=== PATIENT | male | born 1955 | race Caucasian/White ===

== ENCOUNTER 2016-12-12 08:33 | Day surgery (SDC) | payer MEDICARE, OTHER ==
[~2016-12-12] VITALS: Ht 180.3 cm; Wt 116.6 kg
[~2016-12-12 08:33] MED LIST: ACET1TAB33 PO; ALPR0.254 PO; AMOX1TAB61 PO; ASPI-482 PO; BUPIVAC MPF-EPI 0.5%-1:200000 30 ML VIAL. ONE; CALC-326 PO; CARV20CP PO; CEFAZOLIN 2GM PREMIX 50 ML IV PRN; CIPR500T6 PO; CRESTOR10 MG PO; CYAN500T PO; DULO60CA44 PO; EMPA25TA PO; ESOM40CA25 PO; FENTANYL PF 100 MCG/2 ML VIAL. IV PRN; FISH1CAP PO; FURO20TA3 PO; GABA-585 PO; GLIP10TA20 PO; HEPARIN SODIUM 5,000 UNIT in IV NORMAL SALINE 500ML BAG 500 ML IRR ONE; HEPARIN for IV BOLUS 10,000 UNIT/10 ML VIAL. ONE; HYDR-2678 PO; HYDROMORPHONE 2 MG/ML VIAL. IV PRN; INSU100C4 SQ; INSU100V8 SQ; IV RINGERS,LACTATED 1000ML 1,000 ML IV SCH; LACT1CAP6 PO; LIDOCAINE 1% 1 ML SYRINGE. ID PRN; MAGN71.5 PO; MORPHINE SULFATE 2 MG/ML DISP.SYRIN. IV PRN; MULT-658 PO; NIAC1000 PO; NITR0.4T SL; ONDA4TAB10 PO; ONDANSETRON PF 4 MG/2 ML VIAL. IV PRN; Oxycodone Hcl/Acetaminophen PO; PARO10TA3 PO; POLY17PO5 PO; PROCHLORPERAZINE 10 MG/2 ML VIAL. IV PRN; RANI150T2 PO; SITA1TAB11 PO; TELM20TA PO; TRAZ50TA15 PO; TRIA80OI TP; VITA400C36 PO; ZOLP5TAB5 PO; [UNRECOGNIZED DRUG - OTHER] PO
[2016-12-12] MEDS ORDERED: PROPOFOL 20 ML IV ONE (09:57)
[2016-12-12] MEDS ORDERED: LIDOCAINE 2% 100 MG/5 ML SYRINGE. ONE (09:58)
[2016-12-12] MEDS ORDERED: FENTANYL PF 100 MCG/2 ML VIAL. ONE (10:12)
[2016-12-12] MEDS ORDERED: PHENYLEPHRINE in 0.9% NACL PF 1 MG/10 ML DISP.SYRIN. IV ONE (10:50)
[2016-12-12] MEDS ORDERED: DEXAMETHASONE SOD PHOS 20 MG/5 ML VIAL. ONE (10:59)
[2016-12-12] MEDS ORDERED: ONDANSETRON PF 4 MG/2 ML VIAL. ONE (10:59)
[2016-12-12] MEDS ORDERED: SEVOFLURANE 61 TO 120 MINUTES. IH ONE (11:00)
[2016-12-12] MEDS ORDERED: HYDR-971 PO (11:41)
[2016-12-12] MEDS ORDERED: HYDROCODONE/APAP 5/325MG TABLET. PO PRN (11:45)
--- NOTE | 2016-12-12 11:52 | RAD ---
PROCEDURE AP chest radiograph. HISTORY Postoperative Port-A-Cath insertion. COMPARISON None available. FINDINGS Cardiac silhouette appears within normal limits for size. Aortic atherosclerosis is seen. There is a right chest port and catheter by internal jugular approach. The tip of the catheter is thought to project at the mid right atrium, 3 centimeters below the atriocaval junction. Linear density is seen involving the mid left lung zone, favored to be atelectasis or scarring. No pneumothorax or pleural effusion is seen. No failure is evident. IMPRESSION Right chest port and catheter are seen. The tip of the catheter is thought to project at the mid right atrium. Electronically signed by: Thai Galindo MD (Dec 12, 2016 11:50:22)
[2016-12-12] MEDS ORDERED: HYDROCODONE/APAP 5/325MG TABLET. ONE (12:02)
[2016-12-12 12:38] VITALS: BP 138/70
--- NOTE | 2016-12-12 12:44 | RAD ---
Portable chest, 12/12/2016, 12:30 PM: History: Check Port-A-Cath placement Comparison is made to the study of earlier the same day. The right Port-A-Cath tip lies in the inferior aspect of the superior vena cava near its junction with the right atrium. The heart size and pulmonary vascularity are normal. There is calcific plaquing of the aorta. There is an unchanged linear opacity in the left midlung compatible with scarring or atelectasis. No pulmonary consolidation is seen. There is scarring over the pulmonary apices. There is no evidence of pleural fluid or pneumothorax. IMPRESSION: 1. The right Port-A-Cath is in good position as described above. 2. Minimal linear scarring or atelectasis in the left lung.
--- NOTE | 2016-12-12 14:55 | OP ---
DATE OF SURGERY: 12/12/2016 PREOPERATIVE DIAGNOSIS: Colon cancer metastatic to liver. POSTOPERATIVE DIAGNOSIS: Colon cancer metastatic to liver. PROCEDURE: 1. Placement of right internal jugular Port-A-Cath. 2. Ultrasound-guided venous access. 3. Intraoperative use of fluoroscopy. SURGEON: Denys Luna M.D. ANESTHESIA: General. ESTIMATED BLOOD LOSS: 5 mL. INTRAVENOUS FLUIDS: 800 mL. INDICATIONS: The patient is a 61-year-old male with metastatic colon cancer, he is set to start chemotherapy next week. FINDINGS: Chest x-ray read by sd shows no evidence of hemo or pneumothorax. The catheter is in good position with the tip in the distal SVC. The computer system is down, so Radiology is unable to review the film at this time and provide a report at this time. PROCEDURE IN DETAIL: After informed consent was obtained, the patient was taken to the operating room and placed in supine position. After adequate induction of general anesthesia, he was prepped and draped in usual sterile fashion. He was placed in Trendelenburg and the right internal jugular vein was visualized with the ultrasound. The overlying skin was anesthetized with local anesthetic and then the right internal jugular vein was accessed on the first attempt with the Cook needle. Venous blood aspirated easily through the Cook needle. Syringe was removed and the guidewire was advanced through the Cook needle into the right internal jugular vein through the superior vena cava and into the right side of the heart. Fluoroscopy was then used to confirm placement of the guidewire. The needle was removed and the guidewire was clamped to the drape with a hemostat. Local was injected on the right chest, then tunneled from the right neck to the right chest. Skin incision was made on the right chest and over the guidewire and the neck. Pocket was then created with cautery on the right chest for placement of the port. The catheter was then tunneled from the right neck to the right chest. The catheter was allowed to lie on a sterile blue towel just adjacent to the chest incision, so that the catheter never came in contact with the skin throughout the procedure. A dilator and sheath were passed over the guidewire under direct fluoroscopic vision. The guidewire slid easily through the passes of the dilator and sheath. The dilator and guidewire were removed leaving the sheath in place. The catheter was inserted through the sheath. The sheath was split and removed. The patient was placed flat and then the catheter withdrawn to the distal SVC under fluoroscopy, this was 27 cm, the catheter was cut, attached to the port and then the port catheter locking device was then slid down over the port catheter junction. The port was then aspirated, venous blood aspirated easily into the syringe. It was then flushed with dilute heparinized saline of 10 units of heparin per mL of saline. It flushed easily and there was no extravasation from the port catheter junction. The catheter was then placed within the pocket, again it was aspirated, venous blood aspirated easily. It was then flushed with dilute heparinized saline, it was then locked with a final locking flush of 2 mL of 1000 units of heparin per mL. The catheter was sutured to the chest wall with 2-0 Prolene suture x 2. Skin incision was closed with a 3-0 Vicryl for the dermal and subdermal layer and the skin incision was then closed with 4-0 Monocryl in subcuticular fashion. The incision at the right neck was closed with subcuticular 4-0 Monocryl. Sterile dressings were placed, which consisted of the equivalent of the Dermabond followed by Steri-Strips. He tolerated the procedure well. There were no apparent complications. He was then transferred in stable condition to the recovery room. DENYS LUNA MD DR: IBRAHIMA/malu JOB#: [id number] / [id number] TYRON Gilliam VINAY MD ROWELL, CARSON MD
== END 2016-12-12 13:00 | disposition home or self-care (01) ==
LOC: SURG 08:33
PROVIDERS: ATTEND Surgery
DX: C18.9 Malignant neoplasm of colon, unspecified (principal); C78.7 Secondary malignant neoplasm of liver and intrahepatic bile duct; I25.10 Atherosclerotic heart disease of native coronary artery without angina pectoris; E78.00 Pure hypercholesterolemia, unspecified; I10 Essential (primary) hypertension; Z90.49 Acquired absence of other specified parts of digestive tract; E66.9 Obesity, unspecified; F41.9 Anxiety disorder, unspecified; F32.9 Major depressive disorder, single episode, unspecified
CPT/HCPCS: 36561; 71010; 76937; 77001; 82947; C1769; C1788; J0690; J1100; J2370; J2405; J2704; J3010; J3490; J7040; 36556

== ENCOUNTER → 2017-04-08 | Outpatient (CLI) | payer MEDICARE, OTHER ==
[~2017-04-08] MED LIST changes: -BUPIVAC MPF-EPI 0.5%-1:200000 30 ML VIAL. ONE; -CEFAZOLIN 2GM PREMIX 50 ML IV PRN; -FENTANYL PF 100 MCG/2 ML VIAL. IV PRN; +GADOBUTROL 10 MMOL/10 ML VIAL IV ONE; +GLIP-112 PO; -GLIP10TA20 PO; -HEPARIN SODIUM 5,000 UNIT in IV NORMAL SALINE 500ML BAG 500 ML IRR ONE; -HEPARIN for IV BOLUS 10,000 UNIT/10 ML VIAL. ONE; +HYDR-971 PO; -HYDROMORPHONE 2 MG/ML VIAL. IV PRN; -IV RINGERS,LACTATED 1000ML 1,000 ML IV SCH; -LIDOCAINE 1% 1 ML SYRINGE. ID PRN; -MORPHINE SULFATE 2 MG/ML DISP.SYRIN. IV PRN; -ONDANSETRON PF 4 MG/2 ML VIAL. IV PRN; +POLY17PO29 PO; -POLY17PO5 PO; -PROCHLORPERAZINE 10 MG/2 ML VIAL. IV PRN
--- NOTE | 2017-04-08 12:50 | RAD ---
INDICATION: Confusion and dizziness. Headaches. Liver malignancy. TECHNIQUE: Sagittal T1, axial T1, axial T2, axial FLAIR, diffusion imaging with ADC map, postcontrast axial, and postcontrast coronal sequences are provided. 10 mL of intravenous Gadavist was administered without complication. There is mild motion degradation. No comparison is available. FINDINGS:The ventricles and sulci are within normal limits for age. There is no acute intracranial hemorrhage or extra-axial fluid collection. There is no mass effect or midline shift. There is no restricted diffusion to suggest an acute infarct. Sagittal midline structures are unremarkable. Pituitary and suprasellar region are unremarkable. There is mucosal thickening in the paranasal sinuses on the left. Left maxillary sinus is opacified. There is no pathologic enhancement. IMPRESSION: 1. No evidence of metastatic disease. 2. Brain parenchymal volume loss. 3. Paranasal sinus disease on the left. Electronically signed by: Tone Worrell MD (04/08/2017 12:47 PM) [id number]
== END | disposition home or self-care (01) ==
LOC: MRI 10:30
PROVIDERS: ATTEND Internal Medicine Hematology & Oncology
DX: C18.2 Malignant neoplasm of ascending colon (principal); C22.8 Malignant neoplasm of liver, primary, unspecified as to type; R41.0 Disorientation, unspecified; R42 Dizziness and giddiness; R51 Headache
CPT/HCPCS: 70553; A9585

== ENCOUNTER → 2017-08-28 | Outpatient (CLI) | payer MEDICARE, OTHER ==
[~2017-08-28] MED LIST changes: -GADOBUTROL 10 MMOL/10 ML VIAL IV ONE
--- NOTE | 2017-08-28 11:46 | RAD ---
Complete abdominal ultrasound 08/28/2017 Indication: Left upper quadrant pain. History of colon cancer. Comparison study: CT of the abdomen and pelvis August 23, 2016. Discussion: Ultrasound evaluation of the abdomen was performed. Static images were submitted to PACS. Pancreas is not visualized secondary to overlying gas-filled bowel. The liver is partially visualized. There is borderline hepatomegaly with the liver measuring 18 cm longitudinally. The liver is diffusely hyperechoic suggesting hepatic steatosis. There is an irregular mass in the posterior right liver with both echogenic and hypoechoic components. There is areas of appears to be calcification. Definitive internal blood flow was not seen on color Doppler imaging. Mass measures approximately 4.8 cm in diameter. The common bile duct is nondilated at 4 mm. The right kidney measures approximately 15 cm in length, though measures affected by a large cyst involving the superior pole the right kidney measuring up to 10 cm in diameter. A smaller adjacent cyst is noted measuring 3 cm in diameter. The left kidney measures 14.1 cm in length. There is a cyst in the mid left kidney measuring up to 4.6 cm in diameter. The spleen is enlarged measuring 16.9 cm. Splenomegaly is new since available comparison studies. Impression: 1. Approximately 4.8 cm partially calcified mass in the posterior right liver. Patient reports history of prior liver mass, with prior surgical removal and/or ablation. This represents post therapeutic change, or residual mass cannot determine on the basis of this exam. Recommend comparison with more recent CT or MR imaging, likely obtained following treatment. 2. Borderline hepatomegaly and hepatic steatosis 3. Splenomegaly, new since available comparison studies. Comparison with interval imaging may again be helpful.
== END | disposition home or self-care (01) ==
LOC: US 06:20
PROVIDERS: ATTEND Internal Medicine Hematology & Oncology
DX: K76.0 Fatty (change of) liver, not elsewhere classified (principal); R16.1 Splenomegaly, not elsewhere classified; R16.0 Hepatomegaly, not elsewhere classified; Z85.038 Personal history of other malignant neoplasm of large intestine
CPT/HCPCS: 76700

== ENCOUNTER → 2017-08-30 | Outpatient (CLI) | payer MEDICARE, OTHER ==
[~2017-08-30] MED LIST changes: +IOHEXOL 240 MG/ML 50ML VIAL. PO ONE; +IOHEXOL 300 MG/ML 100ML VIAL. IV ONE
--- NOTE | 2017-08-30 12:52 | [facility]IC ---
CT chest, abdomen and pelvis with contrast 08/30/2017 CLINICAL INDICATION: Ascending colon carcinoma and left upper quadrant abdominal pain. History of hepatic resection and liver ablation. COMPARISON: CT chest, abdomen and pelvis 08/23/2016. TECHNIQUE: Multiple CT images of the chest, abdomen and pelvis were obtained following the intravenous and ministration of 100 mL Omnipaque 300. *One or more of the following individualized dose reduction techniques were utilized for this examination: 1. Automated exposure control. 2. Adjustment of the mA and/or kV according to patient size. 3. Use of iterative reconstruction technique. FINDINGS: CHEST: Heart size is normal without definite pericardial effusion. Coronary artery calcifications are noted. The thoracic aorta is normal in caliber. No axillary, mediastinal or hilar lymphadenopathy. The central airways are patent. No suspicious noncalcified pulmonary nodule. No pleural effusion, pneumothorax or focal airspace consolidation. There are no destructive osseous lesions. There is a right IJ chest port with distal tip terminating in the low SVC. Abdomen and pelvis: Prior partial right hepatectomy. Just anterior to the cut surface of the liver near the dome, there is a 2.5 cm hypodensity series 4/image 22 with adjacent surgical suture material. Additional right lobe hypodensity with peripheral surgical suture material measuring 2.7 cm series 4/image 22. There is a hypodensity in the central right lobe of the liver near the junction with the caudate measuring 1.7 cm series 4/image 21 and increased from August 23, 2016 examination. There is an exophytic capsular hypodensity along the inferior margin of the cut surface of the liver measuring 1.2 cm series 4/image 28. There is moderate splenomegaly measuring 16 cm oblique CC without suspicious focal lesion. Adrenal glands unremarkable. Moderate fatty atrophy of the pancreas. There is stable bilateral renal cysts, largest superior pole of the right kidney measuring 9.4 cm. No hydronephrosis. Tortuous abdominal aorta which is normal in caliber with mild aortoiliac calcified atheromatous disease. Major portal, splenic and visualized. Mesenteric veins are widely patent. There are postsurgical changes of a distal colectomy and right hemicolectomy without evidence of discrete soft tissue mass at the anastomotic sites to suggest local recurrence. No retroperitoneal or mesenteric lymphadenopathy. No abdominal free fluid. No pneumoperitoneum. Note is made of exuberant retroperitoneal lipomatosis, stable. Mildly distended unopacified urinary bladder, prostate, and seminal vesicles are unremarkable. No iliac or inguinal lymphadenopathy. No pelvic free fluid. There is lower anterior omental peripherally calcified fat necrosis. Additional fat necrosis in the periumbilical region. There are no destructive osseous lesions. IMPRESSION: CHEST: No evidence of thoracic metastatic disease. Abdomen and pelvis: 1. Prior right brittani- and distal colectomies, and partial right hepatectomy. 2. Central right hepatic lesion abutting the caudate, measuring 1.7 cm, concerning for hepatic metastasis. 3. Anterior right hepatic hypodensities near the cut surface of the liver may represent postablation cavities, however local recurrence cannot be definitively excluded on single phase contrast. If there is more recent CT or MR imaging then August 23, 2016, correlation is recommended. If not, short-term follow-up is recommended. 4. Small, 1.2 cm exophytic hypodensity at the capsule of the inferior right lobe, indeterminate. Findings may represent nodular scarring from posterior. Change, however metastasis cannot basilar appearance. 5. No abdominal or pelvic lymphadenopathy. 6. Moderate splenomegaly. Electronically signed by: Sudeep Orosco MD (08/30/2017 12:49 PM) [id number]
== END | disposition home or self-care (01) ==
LOC: KCIC CT 10:05
PROVIDERS: ATTEND Internal Medicine Hematology & Oncology
DX: C18.2 Malignant neoplasm of ascending colon (principal); R16.1 Splenomegaly, not elsewhere classified
CPT/HCPCS: 71260; 74177; Q9966; Q9967

== ENCOUNTER → 2018-11-07 | Outpatient (CLI) | payer MEDICARE, OTHER ==
[~2018-11-07] MED LIST changes: +APIX5TAB PO; +ASPI81TA59 PO; -CYAN500T PO; +CYAN500T2 PO; +DIPH1TAB PO; +DULA0.75 SQ; -GLIP-112 PO; +GLIP10TA24 PO; +HYDR-2761 PO; +HYDR-3164 PO; -HYDR-971 PO; +INSU100I13 SQ; +INSU100V31 SQ; -IOHEXOL 240 MG/ML 50ML VIAL. PO ONE; -IOHEXOL 300 MG/ML 100ML VIAL. IV ONE; +ISOS30TA4 PO; +MAGN64TA6 PO; +METF10007 PO; +OMEG-167 PO; +ONDA4TAB11 PO; +PANT20TA2 PO; +PREG200C PO; +PSYL3.4P PO; +TRAZ-118 PO; -TRAZ50TA15 PO
--- NOTE | 2018-11-07 09:17 | RAD ---
Thyroid sonography Clinical indications: Thyroid nodule COMPARISON: Available. FINDINGS: The longitudinal AP and transverse dimensions of the right lobe are 4.8 cm and 1.7 cm and 1.0 cm respectively. The right lobe is homogeneous. Isthmus is homogeneous and measures 2.9 mm in thickness. The longitudinal AP and transverse dimensions of the left lobe are 4.3 cm and 1.3 cm and 1.4 cm respectively. There is a small hypoechoic nodule within the posterior lower pole measuring 6 mm x 5 mm x 8 mm in size. IMPRESSION: 8 mm hypoechoic nodule within the inferior pole of the left lobe. This is ACR TI category 4 lesion. Recommend follow-up thyroid sonogram in 6-12 months. Electronically signed by: Nelson Caban MD (11/07/2018 9:14 AM) [facility]
== END | disposition home or self-care (01) ==
LOC: US 07:56
PROVIDERS: ATTEND Internal Medicine Hematology & Oncology
DX: E04.1 Nontoxic single thyroid nodule (principal)
CPT/HCPCS: 76536

== ENCOUNTER 2019-06-28 16:14 | Inpatient (IN) | payer MEDICARE, OTHER ==
[~2019-06-28] VITALS: Ht 180.3 cm; Wt 117.1 kg
[~2019-06-28 16:14] MED LIST changes: -CYAN500T2 PO; +CYAN500T52 PO; -DULO60CA44 PO; +DULO60CA45 PO; -NITR0.4T SL; +NITR0.4T24 SL
[2019-06-28] MEDS ORDERED: ONDANSETRON PF 4 MG/2 ML VIAL. IV ONE (16:45)
[2019-06-28] MEDS ORDERED: fentaNYL PF VIAL 100 MCG/2 ML VIAL IV ONE (16:45)
[2019-06-28] MEDS ORDERED: IV NORMAL SALINE 1000ML BAG 1,000 ML IV ONE ×2 (16:45→17:45)
[2019-06-28 17:22] LABS: BASO # 0.1 x10^3/uL (0.0-0.2); BASO % 0 % (0-3); EOS # 0.3 x10^3/uL (0.0-0.7); EOS % 2 % (0-3); HEMATOCRIT 26.8 % (39.0-53.0); HEMOGLOBIN 8.9 g/dL (13.0-17.5); LYMPH # 1.6 x10^3/uL (1.0-4.8); LYMPH % 8 % (24-48); MEAN CORPUSCULAR HEMOGLOBIN 31 pg (25-35); MEAN CORPUSCULAR HGB CONC 33 g/dL (31-37); MEAN CORPUSCULAR VOLUME 93 fL (79-100); MONO # 0.6 x10^3/uL (0.0-1.1); MONO % 3 % (0-9); NEUT # 16.8 x10^3/uL (1.8-7.7); NEUT % 87 % (31-73); PLATELET COUNT 37 x10^3/uL (140-400); RED BLOOD COUNT 2.89 x10^6/uL (4.30-5.70); WHITE BLOOD COUNT 19.3 x10^3/uL (4.0-11.0)
[2019-06-28 17:29] LABS: PROTHROMBIN TIME PATIENT 14.9 SEC (11.7-14.0)
--- NOTE | 2019-06-28 17:29 | RAD ---
PORTABLE CHEST 1V 06/28/2019 4:41 PM INDICATION: Weakness COMPARISON: 02/16/2019 TECHNIQUE: Portable frontal view of the chest is provided. FINDINGS: The cardiomediastinal silhouette is similar in appearance. Right chest wall infusion port catheter is in similar position. There may be minimal blunting of the left costophrenic angle suggestive of trace pleural effusion versus pleural thickening. No pulmonary vascular congestion or pneumothorax. IMPRESSION: Minimal blunting of left costophrenic angle, new from the prior examination. This may be positional or secondary to overlapping soft tissues from the left breast. Consideration may be given for trace left pleural effusion or pleural thickening. Electronically signed by: Roxana Benson MD (06/28/2019 5:26 PM) [facility]
[2019-06-28 17:30] LABS: CALCIUM 8.9 mg/dL (8.5-10.1); GFR 74.8; POTASSIUM 3.9 mmol/L (3.5-5.1)
[2019-06-28 17:36] LABS: ALBUMIN 3.4 g/dL (3.4-5.0); ALBUMIN/GLOBULIN RATIO 1.1 (1.0-1.7); TOTAL BILIRUBIN 0.7 mg/dL (0.2-1.0); TOTAL PROTEIN 6.5 g/dL (6.4-8.2)
[2019-06-28 17:38] LABS: % BANDS 9 % (0-9); % EOS 1 % (0-5); % LYMPHS 9 % (24-48); % MONOS 1 % (0-10); % SEGS 80 % (35-66); PLT ESTIMATE DECREASED (ADEQUATE)
[2019-06-28 17:40] LABS: ANISOCYTOSIS MOD; POLYCHROMASIA SLIGHT; TOXIC GRANULATION MOD
--- NOTE | 2019-06-28 17:42 | PHYS DOC ---
Past Medical History Past Medical History: Asthma, CAD, Cancer, COPD, Diabetes-Type II, Hypertension, Other Additional Past Medical Histor: COLON CA-STAGE 4 Past Surgical History: Appendectomy, Cancer Surgery, Colectomy, Other Additional Past Surgical Histo: partial colectomy, cardiac stent Alcohol Use: None Drug Use: None Adult General Chief Complaint Chief Complaint: WEAKNESS/GENERALIZED HPI HPI Patient is a 64 year old male history of chemotherapy for stage IV colon cancer metastases to liver and lung presenting with generalized malaise for the past few days decreased by mouth intake mild abdominal discomfort headache moderate both temples described as throbbing comes and goes slowly worsening has had that headache before with dehydration in the past says last CAT scan of the brain he had was several months ago and it did not show any tumors as far as he knows. He did have a large episode several episodes yesterday of brown loose stool. Has had a lot of trouble urinating really only dribble at a time when he tries to urinate. Only would have 1 ounce of Gatorade at a time. Of note he was at [facility] 2 weeks ago he tells me he had a GI bleed he said he was on Candi Radha and he was thanks hemorrhaging from his rectum he had multiple studies including endoscopy colonoscopy capsule endoscopy in he describes a radionuclide bleeding studies at this ESOPHAGEAL [facility] THEY BANDED HE TELLS ME I'M WAITING FOR THE RECORDS I ASKED FOR THE DISCHARGE SUMMARY FROM LAST COUPLE OF WEEKS. Review of Systems Review of Systems Denies fever or chills [] Eyes: Denies change in visual acuity, redness, or eye pain [] HENT: Denies nasal congestion or sore throat [] Respiratory: Denies cough or shortness of breath [] Cardiovascular: No additional information not addressed in HPI [] Musculoskeletal: Denies back pain or joint pain [] Integument: Denies rash or skin lesions [] All other systems were reviewed and found to be within normal limits, except as documented in this note. Current Medications Current Medications Current Medications Medications (Trade) Dose Ordered Sig/Joao Start Time Stop Time Status Last Admin Dose Admin Fentanyl Citrate (Fentanyl 2ml Vial) 50 mcg 1X ONCE 06/28/19 16:45 06/28/19 16:58 DC 06/28/19 17:21 50 MCG Morphine Sulfate (Morphine Sulfate) 4 mg PRN Q2HR PRN 06/28/19 18:00 10/21/19 17:59 Ondansetron HCl (Zofran) 4 mg PRN Q8HRS PRN 06/28/19 18:00 06/29/19 17:59 Piperacillin Sod/ Tazobactam Sod 3.375 gm/Sodium Chloride 50 ml @ 100 mls/hr 1X ONCE 06/28/19 18:15 06/28/19 18:44 Sodium Chloride 1,000 ml @ 75 mls/hr [id number] 06/28/19 17:57 06/29/19 17:56 Allergies Allergies Allergies Coded Allergies Type Severity Reaction Last Updated Verified lisinopril Allergy Intermediate coughing 12/12/16 Yes ranolazine Allergy Intermediate HYPOTENSION 12/12/16 Yes Physical Exam Physical Exam Constitutional: Well developed, well nourished, no acute distress, non-toxic appearance. [] HENT: Normocephalic, atraumatic, bilateral external ears normal, oropharynx moist, no oral exudates, nose normal. [] Eyes: PERRLA, EOMI, conjunctiva normal, no discharge. [] Neck: Normal range of motion, no tenderness, supple, no stridor. [] Cardiovascular:Heart rate regular rhythm, no murmur [] Lungs & Thorax: Bilateral breath sounds clear to auscultation [] Abdomen: Bowel sounds normal, soft, MILD tenderness, no masses, no pulsatile masses. [] Skin: Pale Back: No tenderness, no CVA tenderness. [] Extremities: No tenderness, no cyanosis, no clubbing, ROM intact, no edema. [] Neurologic: Alert and oriented X 3, normal motor function, normal sensory function, no focal deficits noted. [] Psychologic: Affect normal, judgement normal, mood normal. [] Current Patient Data Vital Signs Vital Signs Date Time Temp Pulse Resp B/P (MAP) Pulse Ox O2 Delivery O2 Flow Rate FiO2 06/28/19 16:35 98.8 92 16 158/67 (97) 98 Room Air 98.8 Lab Values Laboratory Tests Test 06/28/19 17:10 06/28/19 17:15 White Blood Count 19.3 x10^3/uL (4.0-11.0) H Red Blood Count 2.89 x10^6/uL (4.30-5.70) L Hemoglobin 8.9 g/dL (13.0-17.5) L Hematocrit 26.8 % (39.0-53.0) L Mean Corpuscular Volume 93 fL (79-100) Mean Corpuscular Hemoglobin 31 pg (25-35) Mean Corpuscular Hemoglobin Concent 33 g/dL (31-37) Red Cell Distribution Width 20.0 % (11.5-14.5) H Platelet Count 37 x10^3/uL (140-400) L Neutrophils (%) (Auto) 87 % (31-73) H Lymphocytes (%) (Auto) 8 % (24-48) L Monocytes (%) (Auto) 3 % (0-9) Eosinophils (%) (Auto) 2 % (0-3) Basophils (%) (Auto) 0 % (0-3) Neutrophils # (Auto) 16.8 x10^3/uL (1.8-7.7) H Lymphocytes # (Auto) 1.6 x10^3/uL (1.0-4.8) Monocytes # (Auto) 0.6 x10^3/uL (0.0-1.1) Eosinophils # (Auto) 0.3 x10^3/uL (0.0-0.7) Basophils # (Auto) 0.1 x10^3/uL (0.0-0.2) Segmented Neutrophils % 80 % (35-66) H Band Neutrophils % 9 % (0-9) Lymphocytes % 9 % (24-48) L Monocytes % 1 % (0-10) Eosinophils % 1 % (0-5) Toxic Granulation Mod Platelet Estimate Decreased (ADEQUATE) Polychromasia Slight Anisocytosis Mod Prothrombin Time 14.9 SEC (11.7-14.0) H Prothrombin Time INR 1.2 (0.8-1.1) H Sodium Level 141 mmol/L (136-145) Potassium Level 3.9 mmol/L (3.5-5.1) Chloride Level 106 mmol/L (98-107) Carbon Dioxide Level 25 mmol/L (21-32) Anion Gap 10 (6-14) Blood Urea Nitrogen 10 mg/dL (8-26) Creatinine 1.0 mg/dL (0.7-1.3) Estimated GFR (Cockcroft-Gault) 74.8 BUN/Creatinine Ratio 10 (6-20) Glucose Level 200 mg/dL (70-99) H Calcium Level 8.9 mg/dL (8.5-10.1) Total Bilirubin 0.7 mg/dL (0.2-1.0) Aspartate Amino Transferase (AST) 17 U/L (15-37) Alanine Aminotransferase (ALT) 25 U/L (16-63) Alkaline Phosphatase 84 U/L (46-116) Troponin I Quantitative < 0.017 ng/mL (0.000-0.055) Total Protein 6.5 g/dL (6.4-8.2) Albumin 3.4 g/dL (3.4-5.0) Albumin/Globulin Ratio 1.1 (1.0-1.7) Lipase 84 U/L (73-393) Influenza Type A Antigen Negative (NEGATIVE) Influenza Type B Antigen Negative (NEGATIVE) Laboratory Tests 06/28/19 17:10 Laboratory Tests 06/28/19 17:10 EKG EKG []NSR RATE 88 BBB PATTERN NO STEMI. Radiology/Procedures Radiology/Procedures [] Impressions: IMPRESSION: Minimal blunting of left costophrenic angle, new from the prior examination. This may be positional or secondary to overlapping soft tissues from the left breast. Consideration may be given for trace left pleural effusion or pleural thickening. Electronically signed by: Parker Benson MD (06/28/2019 5:26 PM) [facility] DICTATED and SIGNED BY: PARKER BENSON MD DATE: 06/28/19 172 Course & Med Decision Making Course & Med Decision Making Pertinent Labs and Imaging studies reviewed. (See chart for details) []PMHx Asthma, COPD, Diabetes-Type II, Hypertension, CAD s/p PCI/stent to the LAD in 2012 (negative cath 09/2017) and colon CA with metastasis to the liver and lung s/p colectomy and is currently on palliative chemotherapy presenting with generalized fatigue headache nausea decreased by mouth intake after recent chemotherapy. LEUKOCYTOSIS NOTED. CT HEAD, CXR NEGATIVE, A/P CT PENDING U/A PENDING D/W RIFFEL ADMIT FOR HYDRATION, HE CAN CHECK ON RESULTS OF CT A/P. CDIFF STUDY ALSO ORDERED FLU SWAB ENG GAVE ZOSYN IN ER WHILE WAITING FOR CT, LACTIC. Dragon Disclaimer Humberto Disclaimer This electronic medical record was generated, in whole or in part, using a voice recognition dictation system. Departure Departure Impression: Primary Impression: Leukocytosis Additional Impression: Dehydration Disposition: 09 ADMITTED INPATIENT Admitting Physician: DONNA Condition: STABLE Referrals: NIYA PUGH MD (PCP) Problem Qualifiers AJ MAIN MD Jun 28, 2019 17:42
--- NOTE | 2019-06-28 17:47 | RAD ---
PQRS Compliance Statement: One or more of the following individualized dose reduction techniques were utilized for this examination: 1. Automated exposure control 2. Adjustment of the mA and/or kV according to patient size 3. Use of iterative reconstruction technique CT HEAD WITHOUT CONTRAST History: Headache, history of malignancy. Comparison: MR brain with and without contrast, April 08, 2017. Procedure: Axial images are obtained of the head from the skull base through the vertex without IV contrast. Findings: There is mild generalized cerebral atrophy. No mass-effect, midline shift, hemorrhage, extra-axial fluid collection, or obvious acute infarction is identified. Basilar cisterns are patent. Bone windows demonstrate no acute calvarial abnormality. The visualized paranasal sinuses are clear. Mastoid air cells are well aerated. IMPRESSION: 1. No acute intracranial abnormality. 2. Mild generalized cerebral atrophy. 3. If there is high clinical suspicion for metastatic disease consider MRI for more sensitive evaluation. Electronically signed by: Jacky Santos MD (06/28/2019 5:45 PM) [facility]
[2019-06-28 17:50] LABS: INFLUENZA A PATIENT NEGATIVE (NEGATIVE); INFLUENZA B PATIENT NEGATIVE (NEGATIVE)
[2019-06-28] MEDS ORDERED: ONDANSETRON PF 4 MG/2 ML VIAL. IV PRN (18:00)
--- NOTE | 2019-06-28 18:01 | RAD ---
PQRS Compliance Statement: One or more of the following individualized dose reduction techniques were utilized for this examination: 1. Automated exposure control 2. Adjustment of the mA and/or kV according to patient size 3. Use of iterative reconstruction technique CT ABDOMEN PELVIS WO CONTRAST Clinical Indication: History of colon cancer, vomiting, pain. Comparison: CT abdomen and pelvis without contrast February 16, 2019. Technique: Helical CT imaging of the abdomen and pelvis is performed without IV or oral contrast. Findings: Evaluation of solid organs and bowel is limited without oral and IV contrast, decreasing sensitivity for detection of pathology. Lung bases essentially clear. Tip of central line seen in distal SVC. Coronary artery disease. Cardiac size normal. There is no pericardial effusion. Stable findings of partial right hepatectomy. Stable hypertrophy of left hepatic lobe. Cholecystectomy. Moderate splenomegaly is stable. There is mild left subphrenic ascites. There is fatty replacement of the pancreas. Adrenal glands are stable. Induration near the MARISELA is unchanged. The abdominal aorta is normal caliber. There are stable bilateral renal cysts. There is no hydronephrosis. Stomach unremarkable. Right supraumbilical fat density with partial rim calcification and identical deeper structure are stable and likely due to fat necrosis. Inferior omental induration is unchanged. There is no dilated small bowel. Proximal colon resection is redemonstrated. There is no colon wall thickening. The urinary bladder is normal. Prostate and seminal vesicles are stable. Mild perirectal induration is similar. There is no pelvic free fluid. Small fat-containing left inguinal hernia. No acute bone abnormality. IMPRESSION: 1. There is mild perisplenic ascites, new from prior study. There is otherwise no acute abdominal or pelvic abnormality. 2. Stable postsurgical changes of the proximal colon and the right liver. 3. Stable moderate splenomegaly. 4. Periumbilical fat necrosis and omental induration are stable. Electronically signed by: Jacky Santos MD (06/28/2019 5:58 PM) [facility]
[2019-06-28] MEDS ORDERED: PIPERACILLIN/TAZOBACTAM 3.375 GM in IV NORMAL SALINE 50ML 50 ML IV ONE (18:15)
[2019-06-28] MEDS: MORPHINE SULFATE 4 MG/ML VIAL. IV PRN ×2 (18:20→22:35)
[2019-06-28 19:00] VITALS: BP 145/39
[2019-06-28] MEDS: IV NORMAL SALINE 1000ML BAG 1,000 ML IV SCH (22:30)
[2019-06-28 23:03] VITALS: BP 148/56
[2019-06-28] MEDS ORDERED: ONDANSETRON PF 4 MG/2 ML VIAL. IVP PRN (23:45)
[2019-06-28] MEDS ORDERED: MORPHINE SULFATE 4 MG/ML VIAL. IV PRN (23:45)
[2019-06-29] MEDS ORDERED: ONDA8TAB14 PO (00:55)
[2019-06-29] MEDS ORDERED: PROP20TA PO (00:55)
[2019-06-29] MEDS ORDERED: ALPR0.5T6 PO (00:55)
[2019-06-29] MEDS ORDERED: TAMS0.4C97 PO (00:55)
[2019-06-29] MEDS ORDERED: INSU100V8 SQ (00:55)
[2019-06-29] MEDS ORDERED: HYDR-2765 PO (00:55)
[2019-06-29] MEDS ORDERED: TELM20TA7 PO (00:55)
[2019-06-29] MEDS ORDERED: CYCL5TAB PO (00:55)
[2019-06-29] MEDS ORDERED: ONDANSETRON ODT 4 MG TAB.RAPDIS. PO PRN (01:00)
[2019-06-29] MEDS ORDERED: HYDROcodone/APAP 7.5/325MG 1 TAB TABLET PO PRN (01:00)
[2019-06-29] MEDS ORDERED: ALPRAZolam 0.5 MG TABLET PO PRN (01:00)
[2019-06-29] MEDS ORDERED: CYCLOBENZAPRINE 10 MG TABLET. PO PRN (01:00)
[2019-06-29] MEDS ORDERED: DIPH1TAB PO (01:00)
[2019-06-29] MEDS ORDERED: DEXTROSE 50% 25 GM / 50ML DISP.SYRIN. IV PRN (01:15)
[2019-06-29] MEDS ORDERED: IV DEXTROSE 5% 250 ML BAG. IV PRN (01:15)
[2019-06-29] MEDS ORDERED: DIPHENOXYLATE/ATROPINE TABLET. PO PRN (01:15)
[2019-06-29 03:03] VITALS: BP 125/55
[2019-06-29] MEDS: MORPHINE SULFATE 4 MG/ML VIAL. IV PRN ×3 (06:15→15:28)
[2019-06-29] MEDS: PANTOPRAZOLE 40 MG TABLET.DR. PO SCH (06:15)
[2019-06-29] MEDS: IV NORMAL SALINE 1000ML BAG 1,000 ML IV SCH ×3 (06:16→21:30)
[2019-06-29 07:00] VITALS: BP 124/68
--- NOTE | 2019-06-29 07:38 | EKG ---
[facility] [address] [place] [address] Test Date: 2019-06-28 Test Time: 17:50:44 Pat Name: MARIAN VALLEJO Department: Room: Gender: M Web Site Specialist: : [id number] Requested By: AJ MAIN Order Number: [id number] Reading MD: Measurements Intervals [place] Rate: 88 P: -53 AL: 124 QRS: -27 QRSD: 162 T: 20 QT: 392 QTc: 478 Interpretive Statements SINUS RHYTHM LEFTWARD AXIS NON SPECIFIC INTRAVENTRICULAR BLOCK ABNORMAL ECG RI6.01 No previous ECG available for comparison
[2019-06-29 07:58] LABS: BILIRUBIN,URINE NEGATIVE (NEG); CLARITY,URINE CLEAR; COLOR,URINE YELLOW; NITRITE,URINE NEGATIVE (NEG); PH,URINE 5.5; PROTEIN,URINE NEGATIVE (NEG-TRACE)
[2019-06-29 08:07] LABS: BACTERIA,URINE 0 /HPF (0-FEW); RBC,URINE 0 /HPF (0-2); SQUAMOUS EPITHELIAL CELL,UR FEW /LPF; WBC,URINE OCC /HPF (0-4)
[2019-06-29] MEDS ORDERED: IV NORMAL SALINE 1000ML BAG 1,000 ML IV ONE (08:15)
[2019-06-29] MEDS: DULoxetine HCL 30 MG CAPSULE.DR PO SCH (08:32)
[2019-06-29] MEDS: TAMSULOSIN 0.4 MG CAP.ER.24H. PO SCH (08:32)
[2019-06-29] MEDS: ISOSORBIDE MONONITRATE ER 30 MG TAB.ER.24H PO SCH (08:33)
[2019-06-29] MEDS: PROPRANOLOL 10 MG TABLET. PO SCH ×2 (08:33→21:00)
[2019-06-29] MEDS: LOSARTAN POTASSIUM 25 MG TABLET. PO SCH (08:33)
[2019-06-29] MEDS: PREGABALIN 50 MG CAPSULE PO SCH ×3 (08:34→21:20)
[2019-06-29] MEDS: ENOXAPARIN 40 MG/0.4 ML SYRINGE. SQ SCH ×2 (08:35→08:45)
[2019-06-29] MEDS: INSULIN LISPRO 300 UNITS/3 ML VIAL. SQ SCH ×6 (08:43→16:38)
--- NOTE | 2019-06-29 10:34 | PDOC1 ---
History and Physical Date of Admission Date of Admission DATE: 06/29/19 TIME: 10:27 Identification/Chief Complaint Chief Complaint diarrhea x 2 days,w ak, headache Source Source: Caregiver, Chart review, Patient History of Present Illness History of Present Illness HE is a known stage 4 colon cancer known to our heme onc group, diarrhea x 2 days, no fevers, weak, poor pO< so went to ER and found to have leukocytosis in 19 plus and clinical signs of dehydration so admitted henceforth, Diarrhea has abated, CT abd and CXR shows findings expected in colon CA - (he had sx twice but no ostomies anymore), HE feels better after 3 IVF bags, courtesy heme onc consulted , still has to see, he asks when to dc NO stool specimen yet as no more diarrhea Denies sick contacts or recent travels or eating suspicious food, lytes look ok PLatelets 37 -might be chronic for hime Hgb 8 Past Medical History Cardiovascular: CAD, HTN Pulmonary: Asthma, COPD GI: Other Heme/Onc: Cancer Hepatobiliary: Other Psych: No pertinent hx Rheumatologic: No pertinent hx Infectious disease: No pertinent hx Renal/: No pertinent hx Endocrine: Diabetes Past Surgical History Past Surgical History: Appendectomy, Colectomy, Colon Resection Family History Family History: Coronary Artery Disease, Family History Unknown Social History Smoke: No ALCOHOL: none Drugs: None Current Problem List Problem List Problems Medical Problems: (1) Dehydration Status: Acute (2) Leukocytosis Status: Acute Current Medications Current Medications Current Medications Sodium Chloride 1,000 ml @ 1,000 mls/hr 1X ONCE IV Last administered on 06/28/19at 17:18; Start 06/28/19 at 16:45; Stop 06/28/19 at 17:44; Status DC Ondansetron HCl (Zofran) 4 mg 1X ONCE IV Last administered on 06/28/19at 17:20; Start 06/28/19 at 16:45; Stop 06/28/19 at 16:58; Status DC Fentanyl Citrate (Fentanyl 2ml Vial) 50 mcg 1X ONCE IV Last administered on 06/28/19at 17:21; Start 06/28/19 at 16:45; Stop 06/28/19 at 16:58; Status DC Sodium Chloride 1,000 ml @ 1,000 mls/hr 1X ONCE IV ; Start 06/28/19 at 17:45; Stop 06/28/19 at 18:44; Status DC Ondansetron HCl (Zofran) 4 mg PRN Q8HRS PRN IV NAUSEA/VOMITING; Start 06/28/19 at 18:00; Stop 06/29/19 at 17:59 Morphine Sulfate (Morphine Sulfate) 4 mg PRN Q2HR PRN IV PAIN Last administered on 06/29/19at 08:35; Start 06/28/19 at 18:00; Stop 06/29/19 at 17:59 Sodium Chloride 1,000 ml @ 75 mls/hr [id number] IV Last administered on 06/29/19at 06:16; Start 06/28/19 at 17:57; Stop 06/29/19 at 17:56 Piperacillin Sod/ Tazobactam Sod 3.375 gm/Sodium Chloride 50 ml @ 100 mls/hr 1X ONCE IV Last administered on 06/28/19at 18:20; Start 06/28/19 at 18:15; Stop 06/28/19 at 18:44; Status DC Morphine Sulfate (Morphine Sulfate) 4 mg PRN Q2HR PRN IV PAIN; Start 06/28/19 at 23:45 Sodium Chloride 1,000 ml @ 75 mls/hr 1X ONCE IV Last administered on 06/29/19at 08:46; Start 06/29/19 at 08:15; Stop 06/29/19 at 21:34 Enoxaparin Sodium (Lovenox 40mg Syringe) 40 mg Q24H SQ ; Start 06/29/19 at 09:00; Stop 06/29/19 at 09:09; Status DC Ondansetron HCl (Zofran) 4 mg PRN Q6HRS PRN IVP NAUSEA/VOMITING; Start 06/28/19 at 23:45 Alprazolam (Xanax) 0.5 mg PRN QID PRN PO ANXIETY / AGITATION; Start 06/29/19 at 01:00 Acetaminophen/ Hydrocodone Bitart (Lortab 7.5/325) 1 tab PRN QID PRN PO PAIN; Start 06/29/19 at 01:00 Insulin Glargine (Lantus Syringe) 70 unit HS SQ ; Start 06/29/19 at 21:00 Isosorbide Mononitrate (Imdur) 30 mg DAILY PO Last administered on 06/29/19 08:33; Start 06/29/19 at 09:00 Tamsulosin HCl (Flomax) 0.4 mg DAILY PO Last administered on 06/29/19 08:32; Start 06/29/19 at 09:00 Cyclobenzaprine HCl (Flexeril) 10 mg PRN TID PRN PO muscle spasms; Start 06/29/19 at 01:00 Duloxetine HCl (Cymbalta) 60 mg DAILY PO Last administered on 06/29/19 08:32; Start 06/29/19 at 09:00 Insulin Human Lispro (HumaLOG) 22 units TIDAC SQ Last administered on 06/29/19 t 08:43; Start 06/29/19 at 07:30 Ondansetron HCl (Zofran Odt) 8 mg PRN QID PRN PO NAUSEA/VOMITING; Start 06/29/19 at 01:00 Pantoprazole Sodium (Protonix) 40 mg DAILYAC PO Last administered on 06/29/19 06:15; Start 06/29/19 at 07:30 Pregabalin (Lyrica) 200 mg TID PO Last administered on 06/29/19 08:34; Start 06/29/19 at 09:00 Propranolol HCl (Inderal) 20 mg BID PO Last administered on 06/29/19 08:33; Start 06/29/19 at 09:00 Atorvastatin Calcium (Lipitor) 40 mg HS PO ; Start 06/29/19 at 21:00 Losartan Potassium (Cozaar) 25 mg DAILY PO Last administered on 06/29/19 08:33; Start 06/29/19 at 09:00 Diphenoxylate HCl/ Atropine (Lomotil) 2 tab PRN Q6HRS PRN PO DIARRHEA; Start 06/29/19 at 01:15 Insulin Glargine (Lantus Syringe) 70 unit QHS SQ ; Start 06/29/19 at 21:00; Status UNV Insulin Human Lispro (HumaLOG) 0-5 UNITS TIDWMEALS SQ Last administered on 06/29/19at 08:44; Start 06/29/19 at 08:00 Dextrose (Dextrose 50%-Water Syringe) 12.5 gm PRN Q15MIN PRN IV SEE COMMENTS; Start 10/21/19 at 01:15 Dextrose 250 ml PRN Q15MIN PRN IV SEE COMMENTS; Start 06/29/19 at 01:15 Active Scripts Active Metamucil Fiber Singles Packet (Psyllium Husk/Aspartame) 3.4 Gm Powd.pack 1 Pkt PO DAILY 30 Days Hydrocodone-Apap 5-325 (Hydrocodone Bit/Acetaminophen) 1 Tab Tablet 1 Tab PO PRN Q4HRS PRN 30 Days Isosorbide Mononitrate Er (Isosorbide Mononitrate) 30 Mg Tab.er.24h 30 Mg PO DAILY 30 Days Reported Lomotil Tablet (Diphenoxylate Hcl/Atropine) 1 Each Tablet 2 Tab PO PRN Q6HRS PRN Cyclobenzaprine Hcl 5 Mg Tablet 1 Tab PO PRN TID PRN Flomax (Tamsulosin Hcl) 0.4 Mg Cap.er.24h 1 Cap PO DAILY Hydrocodone-Apap 7.5-325 (Hydrocodone Bit/Acetaminophen) 1 Tab Tablet 1 Tab PO PRN QID PRN Propranolol Hcl 20 Mg Tablet 1 Tab PO BID Lantus (Insulin Glargine,Hum.rec.anlog) 100 Unit/1 Ml Vial 70 Unit SQ HS Ondansetron Hcl 8 Mg Tablet 8 Mg PO QID PRN Alprazolam 0.5 Mg Tablet 1 Tab PO PRN QID PRN Telmisartan 20 Mg Tablet 20 Mg PO DAILY Mag64 (Magnesium Chloride) 64 Mg Tablet.er 64 Mg PO BID Fish Oil 1,200 mg Softgel ([place]-3S/Dha/Epa/Fish Oil) 1 Each Capsule. 1,200 Mg PO DAILY Children's Aspirin (Aspirin) 81 Mg Tab.chew 81 Mg PO DAILY Novolog (Insulin Aspart) 100 Unit/1 Ml Vial 22 Unit SQ TIDAC Eliquis (Apixaban) 5 Mg Tablet 5 Mg PO BID Protonix (Pantoprazole Sodium) 20 Mg Tablet. 40 Mg PO DAILY Lyrica (Pregabalin) 200 Mg Capsule 200 Mg PO TID 30 Days Trulicity (Dulaglutide) 0.75 Mg/0.5 Ml Pen.injctr 0.75 Mg SQ WEEKLY Metformin Hcl 1,000 Mg Tablet 1,000 Mg PO BIDWMEALS Zolpidem Tartrate 5 Mg Tablet 1 Tab PO QHS Duloxetine Hcl 60 Mg Capsule. 60 Mg PO DAILY Ranitidine Hcl 150 Mg Tablet 150 Mg PO DAILY Jardiance (Empagliflozin) 25 Mg Tablet 25 Mg PO DAILY Furosemide 20 Mg Tablet 20 Mg PO DAILY Coreg Cr (Carvedilol Phosphate) 20 Mg Cpmp.24hr 20 Mg PO DAILY Crestor (Rosuvastatin Calcium) 10 Mg Tablet 10 Mg PO DAILY Oyster Shell Calcium + D Tab (Calcium Carbonate/Vitamin D3) 1 Each Tablet 1 Each PO BID Allergies Allergies: Coded Allergies: lisinopril (Verified Allergy, Intermediate, coughing, 12/12/16) ranolazine (Verified Allergy, Intermediate, HYPOTENSION, 12/12/16) ROS Review of System weak, all else 14 pt neg Physical Exam General: Alert, Oriented X3, Cooperative, No acute distress HEENT: Atraumatic, PERRLA, EOMI Lungs: Clear to auscultation, Normal air movement Heart: S1S2, RRR, no gallops, no murmurs Cardiovascular: S1, S2 Abdomen: Normal bowel sounds, Soft, No tenderness, No masses, Other (abdominla scars, obese, but no pain) Male Genitals Exam: normal genitalia, normal prostate Rectal Exam: not examined PELVIC: Nml ext genitalia Extremities: No clubbing, No cyanosis, No edema, Normal pulses, No tenderness/swelling Skin: No rashes, No breakdown, No significant lesion Neuro: Normal gait, Normal speech, Strength at 5/5 X4 ext, Normal tone, Sensation intact, Cranial nerves 3-12 NL, Reflexes 2+ Psych/Mental Status: Mental status NL Vitals Vitals Vital Signs Date Time Temp Pulse Resp B/P (MAP) Pulse Ox O2 Delivery O2 Flow Rate FiO2 06/29/19 10:18 98 Room Air 06/29/19 08:33 84 124/68 06/29/19 07:00 97.9 18 97.9 Labs Labs Laboratory Tests Test 06/28/19 17:10 06/28/19 17:15 06/29/19 07:05 White Blood Count 19.3 x10^3/uL (4.0-11.0) Red Blood Count 2.89 x10^6/uL (4.30-5.70) Hemoglobin 8.9 g/dL (13.0-17.5) Hematocrit 26.8 % (39.0-53.0) Mean Corpuscular Volume 93 fL (79-100) Mean Corpuscular Hemoglobin 31 pg (25-35) Mean Corpuscular Hemoglobin Concent 33 g/dL (31-37) Red Cell Distribution Width 20.0 % (11.5-14.5) Platelet Count 37 x10^3/uL (140-400) Neutrophils (%) (Auto) 87 % (31-73) Lymphocytes (%) (Auto) 8 % (24-48) Monocytes (%) (Auto) 3 % (0-9) Eosinophils (%) (Auto) 2 % (0-3) Basophils (%) (Auto) 0 % (0-3) Neutrophils # (Auto) 16.8 x10^3/uL (1.8-7.7) Lymphocytes # (Auto) 1.6 x10^3/uL (1.0-4.8) Monocytes # (Auto) 0.6 x10^3/uL (0.0-1.1) Eosinophils # (Auto) 0.3 x10^3/uL (0.0-0.7) Basophils # (Auto) 0.1 x10^3/uL (0.0-0.2) Segmented Neutrophils % 80 % (35-66) Band Neutrophils % 9 % (0-9) Lymphocytes % 9 % (24-48) Monocytes % 1 % (0-10) Eosinophils % 1 % (0-5) Toxic Granulation Mod Platelet Estimate Decreased (ADEQUATE) Polychromasia Slight Anisocytosis Mod Prothrombin Time 14.9 SEC (11.7-14.0) Prothromb Time International Ratio 1.2 (0.8-1.1) Sodium Level 141 mmol/L (136-145) Potassium Level 3.9 mmol/L (3.5-5.1) Chloride Level 106 mmol/L (98-107) Carbon Dioxide Level 25 mmol/L (21-32) Anion Gap 10 (6-14) Blood Urea Nitrogen 10 mg/dL (8-26) Creatinine 1.0 mg/dL (0.7-1.3) Estimated GFR (Cockcroft-Gault) 74.8 BUN/Creatinine Ratio 10 (6-20) Glucose Level 200 mg/dL (70-99) Lactic Acid Level 1.5 mmol/L (0.4-2.0) Calcium Level 8.9 mg/dL (8.5-10.1) Total Bilirubin 0.7 mg/dL (0.2-1.0) Aspartate Amino Transf (AST/SGOT) 17 U/L (15-37) Alanine Aminotransferase (ALT/SGPT) 25 U/L (16-63) Alkaline Phosphatase 84 U/L (46-116) Troponin I Quantitative < 0.017 ng/mL (0.000-0.055) Total Protein 6.5 g/dL (6.4-8.2) Albumin 3.4 g/dL (3.4-5.0) Albumin/Globulin Ratio 1.1 (1.0-1.7) Lipase 84 U/L (73-393) Influenza Type A Antigen Negative (NEGATIVE) Influenza Type B Antigen Negative (NEGATIVE) Urine Collection Type Unknown Urine Color Yellow Urine Clarity Clear Urine pH 5.5 Urine Specific [place] >=1.030 Urine Protein Negative mg/dL (NEG-TRACE) Urine Glucose (UA) >=1000 mg/dL (NEG) Urine Ketones (Stick) 15 mg/dL (NEG) Urine Blood Negative (NEG) Urine Nitrite Negative (NEG) Urine Bilirubin Negative (NEG) Urine Urobilinogen Dipstick 1.0 mg/dL (0.2 mg/dL) Urine Leukocyte Esterase Negative (NEG) Urine RBC 0 /HPF (0-2) Urine WBC Occ /HPF (0-4) Urine Squamous Epithelial Cells Few /LPF Urine Bacteria 0 /HPF (0-FEW) Urine Mucus Mod /LPF Laboratory Tests Test 06/28/19 17:10 06/28/19 17:15 06/29/19 07:05 White Blood Count 19.3 x10^3/uL (4.0-11.0) Red Blood Count 2.89 x10^6/uL (4.30-5.70) Hemoglobin 8.9 g/dL (13.0-17.5) Hematocrit 26.8 % (39.0-53.0) Mean Corpuscular Volume 93 fL (79-100) Mean Corpuscular Hemoglobin 31 pg (25-35) Mean Corpuscular Hemoglobin Concent 33 g/dL (31-37) Red Cell Distribution Width 20.0 % (11.5-14.5) Platelet Count 37 x10^3/uL (140-400) Neutrophils (%) (Auto) 87 % (31-73) Lymphocytes (%) (Auto) 8 % (24-48) Monocytes (%) (Auto) 3 % (0-9) Eosinophils (%) (Auto) 2 % (0-3) Basophils (%) (Auto) 0 % (0-3) Neutrophils # (Auto) 16.8 x10^3/uL (1.8-7.7) Lymphocytes # (Auto) 1.6 x10^3/uL (1.0-4.8) Monocytes # (Auto) 0.6 x10^3/uL (0.0-1.1) Eosinophils # (Auto) 0.3 x10^3/uL (0.0-0.7) Basophils # (Auto) 0.1 x10^3/uL (0.0-0.2) Segmented Neutrophils % 80 % (35-66) Band Neutrophils % 9 % (0-9) Lymphocytes % 9 % (24-48) Monocytes % 1 % (0-10) Eosinophils % 1 % (0-5) Toxic Granulation Mod Platelet Estimate Decreased (ADEQUATE) Polychromasia Slight Anisocytosis Mod Prothrombin Time 14.9 SEC (11.7-14.0) Prothromb Time International Ratio 1.2 (0.8-1.1) Sodium Level 141 mmol/L (136-145) Potassium Level 3.9 mmol/L (3.5-5.1) Chloride Level 106 mmol/L (98-107) Carbon Dioxide Level 25 mmol/L (21-32) Anion Gap 10 (6-14) Blood Urea Nitrogen 10 mg/dL (8-26) Creatinine 1.0 mg/dL (0.7-1.3) Estimated GFR (Cockcroft-Gault) 74.8 BUN/Creatinine Ratio 10 (6-20) Glucose Level 200 mg/dL (70-99) Lactic Acid Level 1.5 mmol/L (0.4-2.0) Calcium Level 8.9 mg/dL (8.5-10.1) Total Bilirubin 0.7 mg/dL (0.2-1.0) Aspartate Amino Transf (AST/SGOT) 17 U/L (15-37) Alanine Aminotransferase (ALT/SGPT) 25 U/L (16-63) Alkaline Phosphatase 84 U/L (46-116) Troponin I Quantitative < 0.017 ng/mL (0.000-0.055) Total Protein 6.5 g/dL (6.4-8.2) Albumin 3.4 g/dL (3.4-5.0) Albumin/Globulin Ratio 1.1 (1.0-1.7) Lipase 84 U/L (73-393) Influenza Type A Antigen Negative (NEGATIVE) Influenza Type B Antigen Negative (NEGATIVE) Urine Collection Type Unknown Urine Color Yellow Urine Clarity Clear Urine pH 5.5 Urine Specific [place] >=1.030 Urine Protein Negative mg/dL (NEG-TRACE) Urine Glucose (UA) >=1000 mg/dL (NEG) Urine Ketones (Stick) 15 mg/dL (NEG) Urine Blood Negative (NEG) Urine Nitrite Negative (NEG) Urine Bilirubin Negative (NEG) Urine Urobilinogen Dipstick 1.0 mg/dL (0.2 mg/dL) Urine Leukocyte Esterase Negative (NEG) Urine RBC 0 /HPF (0-2) Urine WBC Occ /HPF (0-4) Urine Squamous Epithelial Cells Few /LPF Urine Bacteria 0 /HPF (0-FEW) Urine Mucus Mod /LPF VTE Prophylaxis Ordered VTE Prophylaxis Devices: Yes VTE Pharmacological Prophylaxi: Yes Assessment/Plan Assessment/Plan Acute diarrhea, seems to be resolving Dehydration, clinically sec to GI losses LEukocytosis WBC 19 NEg UTI, neg PNA - could be AGE Chronic anemia - hgb 8 Thrombocytopenia - hold lovenox SQ STage 4 colon ca - known to heme onc Obesity BMI 36\ PLAn: Keep IVF even after ed bridge order falls off COnt home meds if any REg diet Recheck CBC tmr - re leukocytosis Dc lovenox SQ -low platelets heme onc courtesy consult JEAN-PAUL CHRISTIANSON MD Jun 29, 2019 10:34
[2019-06-29 11:00] VITALS: BP 104/53
--- NOTE | 2019-06-29 11:20 | NUR ---
SS following for discharge planning. SS reviewed pt chart. Pt is from home with spouse and is currently on room air. PT/OT ordered. SS will await PT/OT evaluations and recommendations and will proceed accordingly with discharge planning.
[2019-06-29 15:00] VITALS: BP 97/50
[2019-06-29 19:50] VITALS: BP 100/48
[2019-06-29] MEDS ORDERED: INSULIN GLARGINE SYRINGE. SQ SCH ×2 (21:00)
[2019-06-29] MEDS ORDERED: ATORVASTATIN CALCIUM 40 MG TABLET. PO SCH (21:00)
[2019-06-29] MEDS ORDERED: INSULIN LISPRO 300 UNITS/3 ML VIAL. SQ ONE (21:30)
[2019-06-29 23:26] VITALS: BP 111/49
--- NOTE | 2019-06-30 00:52 | CONS ---
DATE OF CONSULTATION: 06/29/2019 REQUESTING PHYSICIAN: Dr. Tone King. REASON FOR CONSULTATION: Colon cancer. HISTORY OF PRESENT ILLNESS: The patient is a 64-year-old gentleman who was diagnosed with colon cancer in 2013 and he underwent a right hemicolectomy on 03/09/2014, which revealed adenocarcinoma, T1 N0 M0, stage 1, involving the ascending colon. Restaging CAT scan on 08/23/2016 revealed 2 new lesions in the liver and hence a liver biopsy was performed on 09/04/2016, which revealed metastatic adenocarcinoma of colorectal origin. He underwent cholecystectomy and segment 7 hepatic resection on 10/19/2016 and he underwent microwave ablation to segment 8 lesion on 11/27/2016. He then received adjuvant chemotherapy with FOLFOX from 12/18/2016. He completed 12 cycles of FOLFOX on 07/16/2017 and he was then on observation. CT scan on 10/22/2018 revealed enlarging bilateral pulmonary nodules compatible with metastatic disease. He had developed neuropathy and hence FOLFOX was not started again. FOLFIRI and Avastin were initiated on 11/04/2018. His most recent CAT scan on 05/25/2019 revealed new tiny sub 5-mm nodule in the lingula and several additional nodules were unchanged. There was thickening of the rectum enhancement in the distal esophagus, development of mild ascites and diffuse mesenteric edema. He underwent an EGD on 06/09/2019, which revealed esophageal varices and gastritis and a colonoscopy on 06/09/2019, which revealed ileocolonic anastomosis and colocolonic anastomosis. His most recent chemotherapy was given on 06/23/2019, which is cycle #11. He was admitted to [facility] on 06/16/2019 through 06/19/2019 for hematemesis. He underwent EGD on 06/16/2019 and he was noted to have nonbleeding esophageal varices, which were banded. Avastin and Eliquis were subsequently discontinued. He has been on Eliquis for management of portal vein thrombosis since 01/02/2019. PAST MEDICAL HISTORY: Coronary artery disease status post stent, colon cancer, colon polyps, diverticulitis, gastroparesis, hypertension, diabetes mellitus, reflux, peptic ulcer disease, diabetic neuropathy, hypertriglyceridemia, depression. FAMILY HISTORY: Positive for leukemia and melanoma. SOCIAL HISTORY: He is a never smoker. REVIEW OF SYSTEMS: A 12-point review of system was performed. Pertinent positives are mentioned in the history of present illness. Rest of the system review is negative. PHYSICAL EXAMINATION: GENERAL APPEARANCE: The patient is a 64-year-old gentleman who is well developed and nourished and in no acute cardiorespiratory distress. VITAL SIGNS: Blood pressure 104/53, temperature 97.7. HEAD: Atraumatic, normocephalic. EYES: No icterus. NECK: Supple. CHEST: Bilaterally symmetrical. HEART: S1, S2 normal. ABDOMEN: Soft, distended. CENTRAL NERVOUS SYSTEM: No focal deficits. LYMPHATICS: No lymphadenopathy. SKIN: No rashes. PSYCHOLOGIC: Mood and affect are appropriate. MUSCULOSKELETAL: No joint effusions. LABORATORY DATA: WBC 19.3, hemoglobin 8.9, platelet count 37, creatinine 1.0. IMPRESSION AND PLAN: 1. Stage 4 colon cancer with liver and lung metastasis. He is on palliative chemotherapy with FOLFIRI and the most recent dose was given on 06/23/2019 with cycle #11. He has had chronic thrombocytopenia from moderate splenomegaly and I will continue to monitor platelet counts closely. 2. Thrombocytopenia due to splenomegaly. Platelet count is 37 on 06/28/2019. Continue to monitor. 3. Generalized weakness, which led to admission to [facility] on 06/28/2019. He is getting IV hydration. Stools for C. diff colitis is also being checked. 4. He will return for followup upon discharge to continue chemotherapy. 5. Gastrointestinal bleed, status post esophageal variceal banding at [facility]. Eliquis and Avastin were discontinued because of gastrointestinal bleed. 6. Portal vein thrombosis and was treated with Eliquis since 12/2018, which was discontinued in 06/2019 due to gastrointestinal bleed. PORSCHE MEDRANO MD DR: HARPREET/malu JOB#: [id number] / [id number] ANNIKA
[2019-06-30 03:24] VITALS: BP 130/74
[2019-06-30 06:11] LABS: BASO % 1 % (0-3); EOS # 0.3 x10^3/uL (0.0-0.7); EOS % 4 % (0-3); HEMATOCRIT 23.2 % (39.0-53.0); HEMOGLOBIN 7.8 g/dL (13.0-17.5); LYMPH # 1.3 x10^3/uL (1.0-4.8); LYMPH % 18 % (24-48); MEAN CORPUSCULAR HEMOGLOBIN 31 pg (25-35); MEAN CORPUSCULAR HGB CONC 34 g/dL (31-37); MEAN CORPUSCULAR VOLUME 94 fL (79-100); MONO # 0.6 x10^3/uL (0.0-1.1); MONO % 8 % (0-9); NEUT # 5.4 x10^3/uL (1.8-7.7); NEUT % 71 % (31-73); PLATELET COUNT 34 x10^3/uL (140-400); RED BLOOD COUNT 2.48 x10^6/uL (4.30-5.70); RED CELL DISTRIBUTION WIDTH 20.1 % (11.5-14.5); WHITE BLOOD COUNT 7.7 x10^3/uL (4.0-11.0)
[2019-06-30 07:00] VITALS: BP 133/58
[2019-06-30] MEDS: INSULIN LISPRO 300 UNITS/3 ML VIAL. SQ SCH ×2 (08:00→08:13)
[2019-06-30] MEDS: PANTOPRAZOLE 40 MG TABLET.DR. PO SCH (08:07)
[2019-06-30] MEDS: PREGABALIN 50 MG CAPSULE PO SCH (08:07)
[2019-06-30] MEDS: TAMSULOSIN 0.4 MG CAP.ER.24H. PO SCH (08:07)
[2019-06-30] MEDS: PROPRANOLOL 10 MG TABLET. PO SCH (08:08)
[2019-06-30] MEDS: DULoxetine HCL 30 MG CAPSULE.DR PO SCH (08:08)
[2019-06-30] MEDS: ISOSORBIDE MONONITRATE ER 30 MG TAB.ER.24H PO SCH (08:08)
[2019-06-30 08:09] VITALS: BP 133/59
[2019-06-30] MEDS: LOSARTAN POTASSIUM 25 MG TABLET. PO SCH (08:09)
--- NOTE | 2019-06-30 08:41 | PDOC ---
PROGRESS NOTES Subjective Subjective HPI - f/u of Stage 4 colon cancer ROS - no CP Objective Objective Vital Signs Date Time Temp Pulse Resp B/P (MAP) Pulse Ox O2 Delivery O2 Flow Rate FiO2 06/30/19 08:09 88 133/59 06/30/19 07:00 97.8 18 93 Room Air 97.8 Intake and Output 06/30/19 06:59 Intake Total 1420 ml Balance 1420 ml Intake Oral 1420 ml # Voids 4 # Bowel Movements 1 Physical Exam Heart: Normal S1, Normal S2 General: Alert, Oriented X3 Lungs: Clear to auscultation Neuro: Normal speech Psych/Mental Status: Mental status NL Assessment Assessment Problems Medical Problems: (1) Dehydration Status: Acute (2) Leukocytosis Status: Acute IMPRESSION AND PLAN: 1. Stage 4 colon cancer with liver and lung metastasis. He is on palliative chemotherapy with FOLFIRI and the most recent dose was given on 06/23/2019 with cycle #11. 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 2. Thrombocytopenia due to splenomegaly/portal hypertension. Platelet count is 37 on 06/28/2019, and 34 on 06/30/19. Continue to monitor. 3. Generalized weakness, which led to admission to [facility] on 06/28/2019. He is getting IV hydration. 4. He will return for followup upon discharge to continue chemotherapy. 5. Gastrointestinal bleed, status post esophageal variceal banding at [facility]. Eliquis and Avastin were discontinued because of gastrointestinal bleed. 6. Portal vein thrombosis and was treated with Eliquis since 12/2018, which was discontinued in 06/2019 due to gastrointestinal bleed. Comment Review of Relevant I have reviewed the following items caatlino (where applicable) has been applied. Labs Laboratory Tests Test 06/28/19 17:10 06/28/19 17:15 06/29/19 07:05 06/29/19 08:13 White Blood Count 19.3 x10^3/uL (4.0-11.0) Red Blood Count 2.89 x10^6/uL (4.30-5.70) Hemoglobin 8.9 g/dL (13.0-17.5) Hematocrit 26.8 % (39.0-53.0) Mean Corpuscular Volume 93 fL (79-100) Mean Corpuscular Hemoglobin 31 pg (25-35) Mean Corpuscular Hemoglobin Concent 33 g/dL (31-37) Red Cell Distribution Width 20.0 % (11.5-14.5) Platelet Count 37 x10^3/uL (140-400) Neutrophils (%) (Auto) 87 % (31-73) Lymphocytes (%) (Auto) 8 % (24-48) Monocytes (%) (Auto) 3 % (0-9) Eosinophils (%) (Auto) 2 % (0-3) Basophils (%) (Auto) 0 % (0-3) Neutrophils # (Auto) 16.8 x10^3/uL (1.8-7.7) Lymphocytes # (Auto) 1.6 x10^3/uL (1.0-4.8) Monocytes # (Auto) 0.6 x10^3/uL (0.0-1.1) Eosinophils # (Auto) 0.3 x10^3/uL (0.0-0.7) Basophils # (Auto) 0.1 x10^3/uL (0.0-0.2) Segmented Neutrophils % 80 % (35-66) Band Neutrophils % 9 % (0-9) Lymphocytes % 9 % (24-48) Monocytes % 1 % (0-10) Eosinophils % 1 % (0-5) Toxic Granulation Mod Platelet Estimate Decreased (ADEQUATE) Polychromasia Slight Anisocytosis Mod Prothrombin Time 14.9 SEC (11.7-14.0) Prothromb Time International Ratio 1.2 (0.8-1.1) Sodium Level 141 mmol/L (136-145) Potassium Level 3.9 mmol/L (3.5-5.1) Chloride Level 106 mmol/L (98-107) Carbon Dioxide Level 25 mmol/L (21-32) Anion Gap 10 (6-14) Blood Urea Nitrogen 10 mg/dL (8-26) Creatinine 1.0 mg/dL (0.7-1.3) Estimated GFR (Cockcroft-Gault) 74.8 BUN/Creatinine Ratio 10 (6-20) Glucose Level 200 mg/dL (70-99) Lactic Acid Level 1.5 mmol/L (0.4-2.0) Calcium Level 8.9 mg/dL (8.5-10.1) Total Bilirubin 0.7 mg/dL (0.2-1.0) Aspartate Amino Transf (AST/SGOT) 17 U/L (15-37) Alanine Aminotransferase (ALT/SGPT) 25 U/L (16-63) Alkaline Phosphatase 84 U/L (46-116) Troponin I Quantitative < 0.017 ng/mL (0.000-0.055) Total Protein 6.5 g/dL (6.4-8.2) Albumin 3.4 g/dL (3.4-5.0) Albumin/Globulin Ratio 1.1 (1.0-1.7) Lipase 84 U/L (73-393) Influenza Type A Antigen Negative (NEGATIVE) Influenza Type B Antigen Negative (NEGATIVE) Urine Collection Type Unknown Urine Color Yellow Urine Clarity Clear Urine pH 5.5 Urine Specific [place] >=1.030 Urine Protein Negative mg/dL (NEG-TRACE) Urine Glucose (UA) >=1000 mg/dL (NEG) Urine Ketones (Stick) 15 mg/dL (NEG) Urine Blood Negative (NEG) Urine Nitrite Negative (NEG) Urine Bilirubin Negative (NEG) Urine Urobilinogen Dipstick 1.0 mg/dL (0.2 mg/dL) Urine Leukocyte Esterase Negative (NEG) Urine RBC 0 /HPF (0-2) Urine WBC Occ /HPF (0-4) Urine Squamous Epithelial Cells Few /LPF Urine Bacteria 0 /HPF (0-FEW) Urine Mucus Mod /LPF Glucose (Fingerstick) 191 mg/dL (70-99) Test 06/29/19 11:23 06/29/19 16:25 06/29/19 21:13 06/30/19 04:58 Glucose (Fingerstick) 184 mg/dL (70-99) 79 mg/dL (70-99) 255 mg/dL (70-99) White Blood Count 7.7 x10^3/uL (4.0-11.0) Red Blood Count 2.48 x10^6/uL (4.30-5.70) Hemoglobin 7.8 g/dL (13.0-17.5) Hematocrit 23.2 % (39.0-53.0) Mean Corpuscular Volume 94 fL (79-100) Mean Corpuscular Hemoglobin 31 pg (25-35) Mean Corpuscular Hemoglobin Concent 34 g/dL (31-37) Red Cell Distribution Width 20.1 % (11.5-14.5) Platelet Count 34 x10^3/uL (140-400) Neutrophils (%) (Auto) 71 % (31-73) Lymphocytes (%) (Auto) 18 % (24-48) Monocytes (%) (Auto) 8 % (0-9) Eosinophils (%) (Auto) 4 % (0-3) Basophils (%) (Auto) 1 % (0-3) Neutrophils # (Auto) 5.4 x10^3/uL (1.8-7.7) Lymphocytes # (Auto) 1.3 x10^3/uL (1.0-4.8) Monocytes # (Auto) 0.6 x10^3/uL (0.0-1.1) Eosinophils # (Auto) 0.3 x10^3/uL (0.0-0.7) Basophils # (Auto) 0.0 x10^3/uL (0.0-0.2) Test 06/30/19 07:17 Glucose (Fingerstick) 216 mg/dL (70-99) Laboratory Tests Test 06/29/19 11:23 06/29/19 16:25 06/29/19 21:13 06/30/19 04:58 Glucose (Fingerstick) 184 mg/dL (70-99) 79 mg/dL (70-99) 255 mg/dL (70-99) White Blood Count 7.7 x10^3/uL (4.0-11.0) Red Blood Count 2.48 x10^6/uL (4.30-5.70) Hemoglobin 7.8 g/dL (13.0-17.5) Hematocrit 23.2 % (39.0-53.0) Mean Corpuscular Volume 94 fL (79-100) Mean Corpuscular Hemoglobin 31 pg (25-35) Mean Corpuscular Hemoglobin Concent 34 g/dL (31-37) Red Cell Distribution Width 20.1 % (11.5-14.5) Platelet Count 34 x10^3/uL (140-400) Neutrophils (%) (Auto) 71 % (31-73) Lymphocytes (%) (Auto) 18 % (24-48) Monocytes (%) (Auto) 8 % (0-9) Eosinophils (%) (Auto) 4 % (0-3) Basophils (%) (Auto) 1 % (0-3) Neutrophils # (Auto) 5.4 x10^3/uL (1.8-7.7) Lymphocytes # (Auto) 1.3 x10^3/uL (1.0-4.8) Monocytes # (Auto) 0.6 x10^3/uL (0.0-1.1) Eosinophils # (Auto) 0.3 x10^3/uL (0.0-0.7) Basophils # (Auto) 0.0 x10^3/uL (0.0-0.2) Test 06/30/19 07:17 Glucose (Fingerstick) 216 mg/dL (70-99) Microbiology 06/28/19 Blood Culture - Preliminary, Resulted NO GROWTH AFTER 1 DAY Medications Current Medications Sodium Chloride 1,000 ml @ 1,000 mls/hr 1X ONCE IV Last administered on 06/28/19at 17:18; Start 06/28/19 at 16:45; Stop 06/28/19 at 17:44; Status DC Ondansetron HCl (Zofran) 4 mg 1X ONCE IV Last administered on 06/28/19at 17:20; Start 06/28/19 at 16:45; Stop 06/28/19 at 16:58; Status DC Fentanyl Citrate (Fentanyl 2ml Vial) 50 mcg 1X ONCE IV Last administered on 1 at 17:21; Start 06/28/19 at 16:45; Stop 06/28/19 at 16:58; Status DC Sodium Chloride 1,000 ml @ 1,000 mls/hr 1X ONCE IV ; Start 06/28/19 at 17:45; Stop 06/28/19 at 18:44; Status DC Ondansetron HCl (Zofran) 4 mg PRN Q8HRS PRN IV NAUSEA/VOMITING; Start 06/28/19 at 18:00; Stop 06/29/19 at 17:59; Status DC Morphine Sulfate (Morphine Sulfate) 4 mg PRN Q2HR PRN IV PAIN Last administered on 06/29/19at 15:28; Start 06/28/19 at 18:00; Stop 06/29/19 at 17:59; Status DC Sodium Chloride 1,000 ml @ 75 mls/hr [id number] IV Last administered on 06/29/19at 06:16; Start 06/28/19 at 17:57; Stop 06/29/19 at 17:56; Status DC Piperacillin Sod/ Tazobactam Sod 3.375 gm/Sodium Chloride 50 ml @ 100 mls/hr 1X ONCE IV Last administered on 06/28/19at 18:20; Start 06/28/19 at 18:15; Stop 06/28/19 at 18:44; Status DC Morphine Sulfate (Morphine Sulfate) 4 mg PRN Q2HR PRN IV PAIN Last administered on 06/29/19at 23:10; Start 06/28/19 at 23:45 Sodium Chloride 1,000 ml @ 75 mls/hr 1X ONCE IV Last administered on 06/29/19at 08:46; Start 06/29/19 at 08:15; Stop 06/29/19 at 21:34; Status DC Enoxaparin Sodium (Lovenox 40mg Syringe) 40 mg Q24H SQ ; Start 06/29/19 at 09:00; Stop 06/29/19 at 09:09; Status DC Ondansetron HCl (Zofran) 4 mg PRN Q6HRS PRN IVP NAUSEA/VOMITING; Start 06/28/19 at 23:45 Alprazolam (Xanax) 0.5 mg PRN QID PRN PO ANXIETY / AGITATION Last administered on 06/29/19at 21:19; Start 06/29/19 at 01:00 Acetaminophen/ Hydrocodone Bitart (Lortab 7.5/325) 1 tab PRN QID PRN PO PAIN; Start 06/29/19 at 01:00 Insulin Glargine (Lantus Syringe) 70 unit HS SQ Last administered on 06/29/19at 21:23; Start 06/29/19 at 21:00 Isosorbide Mononitrate (Imdur) 30 mg DAILY PO Last administered on 06/30/19at 08:08; Start 06/29/19 at 09:00 Tamsulosin HCl (Flomax) 0.4 mg DAILY PO Last administered on 06/30/19at 08:07; Start 06/29/19 at 09:00 Cyclobenzaprine HCl (Flexeril) 10 mg PRN TID PRN PO muscle spasms Last administered on 06/29/19 23:09; Start 06/29/19 at 01:00 Duloxetine HCl (Cymbalta) 60 mg DAILY PO Last administered on 06/30/19at 08:08; Start 06/29/19 at 09:00 Insulin Human Lispro (HumaLOG) 22 units TIDAC SQ Last administered on 06/30/19at 08:13; Start 06/29/19 at 07:30 Ondansetron HCl (Zofran Odt) 8 mg PRN QID PRN PO NAUSEA/VOMITING; Start 1 at 01:00 Pantoprazole Sodium (Protonix) 40 mg DAILYAC PO Last administered on 06/30/19 08:07; Start 06/29/19 at 07:30 Pregabalin (Lyrica) 200 mg TID PO Last administered on 06/30/19 08:07; Start 06/29/19 at 09:00 Propranolol HCl (Inderal) 20 mg BID PO Last administered on 06/30/19 08:08; Start 06/29/19 at 09:00 Atorvastatin Calcium (Lipitor) 40 mg HS PO Last administered on 06/29/19at 21:20; Start 06/29/19 at 21:00 Losartan Potassium (Cozaar) 25 mg DAILY PO Last administered on 06/30/19 08:09; Start 06/29/19 at 09:00 Diphenoxylate HCl/ Atropine (Lomotil) 2 tab PRN Q6HRS PRN PO DIARRHEA; Start 06/29/19 at 01:15 Insulin Glargine (Lantus Syringe) 70 unit QHS SQ ; Start 06/29/19 at 21:00; Status UNV Insulin Human Lispro (HumaLOG) 0-5 UNITS TIDWMEALS SQ Last administered on 06/29/19at 11:48; Start 06/29/19 at 08:00 Dextrose (Dextrose 50%-Water Syringe) 12.5 gm PRN Q15MIN PRN IV SEE COMMENTS; Start 06/29/19 at 01:15 Dextrose 250 ml PRN Q15MIN PRN IV SEE COMMENTS; Start 06/29/19 at 01:15 Sodium Chloride 1,000 ml @ 75 mls/hr [id number] IV Last administered on 06/29/19at 21:30; Start 06/29/19 at 10:30 Insulin Human Lispro (HumaLOG) 2 units 1X ONCE SQ Last administered on 06/29/19at 21:24; Start 06/29/19 at 21:30; Stop 06/29/19 at 21:31; Status DC Active Scripts Active Metamucil Fiber Singles Packet (Psyllium Husk/Aspartame) 3.4 Gm Powd.pack 1 Pkt PO DAILY 30 Days Hydrocodone-Apap 5-325 (Hydrocodone Bit/Acetaminophen) 1 Tab Tablet 1 Tab PO PRN Q4HRS PRN 30 Days Isosorbide Mononitrate Er (Isosorbide Mononitrate) 30 Mg Tab.er.24h 30 Mg PO DAILY 30 Days Reported Lomotil Tablet (Diphenoxylate Hcl/Atropine) 1 Each Tablet 2 Tab PO PRN Q6HRS PRN Cyclobenzaprine Hcl 5 Mg Tablet 1 Tab PO PRN TID PRN Flomax (Tamsulosin Hcl) 0.4 Mg Cap.er.24h 1 Cap PO DAILY Hydrocodone-Apap 7.5-325 (Hydrocodone Bit/Acetaminophen) 1 Tab Tablet 1 Tab PO PRN QID PRN Propranolol Hcl 20 Mg Tablet 1 Tab PO BID Lantus (Insulin Glargine,Hum.rec.anlog) 100 Unit/1 Ml Vial 70 Unit SQ HS Ondansetron Hcl 8 Mg Tablet 8 Mg PO QID PRN Alprazolam 0.5 Mg Tablet 1 Tab PO PRN QID PRN Telmisartan 20 Mg Tablet 20 Mg PO DAILY Mag64 (Magnesium Chloride) 64 Mg Tablet.er 64 Mg PO BID Fish Oil 1,200 mg Softgel ([place]-3S/Dha/Epa/Fish Oil) 1 Each Capsule. 1,200 Mg PO DAILY Children's Aspirin (Aspirin) 81 Mg Tab.chew 81 Mg PO DAILY Novolog (Insulin Aspart) 100 Unit/1 Ml Vial 22 Unit SQ TIDAC Eliquis (Apixaban) 5 Mg Tablet 5 Mg PO BID Protonix (Pantoprazole Sodium) 20 Mg Tablet.dr 40 Mg PO DAILY Lyrica (Pregabalin) 200 Mg Capsule 200 Mg PO TID 30 Days Trulicity (Dulaglutide) 0.75 Mg/0.5 Ml Pen.injctr 0.75 Mg SQ WEEKLY Metformin Hcl 1,000 Mg Tablet 1,000 Mg PO BIDWMEALS Zolpidem Tartrate 5 Mg Tablet 1 Tab PO QHS Duloxetine Hcl 60 Mg Capsule.dr 60 Mg PO DAILY Ranitidine Hcl 150 Mg Tablet 150 Mg PO DAILY Jardiance (Empagliflozin) 25 Mg Tablet 25 Mg PO DAILY Furosemide 20 Mg Tablet 20 Mg PO DAILY Coreg Cr (Carvedilol Phosphate) 20 Mg Cpmp.24hr 20 Mg PO DAILY Crestor (Rosuvastatin Calcium) 10 Mg Tablet 10 Mg PO DAILY Oyster Shell Calcium + D Tab (Calcium Carbonate/Vitamin D3) 1 Each Tablet 1 Each PO BID Vitals/I & O Vital Sign - Last 24 Hours 06/29/19 06/29/19 06/29/19 06/29/19 10:18 11:00 15:00 15:28 Temp 97.7 97.9 97.7 97.9 Pulse 76 76 Resp 18 18 B/P (MAP) 104/53 (70) 97/50 (66) Pulse Ox 98 95 97 97 O2 Delivery Room Air Room Air Room Air Room Air 06/29/19 06/29/19 06/29/19 06/29/19 16:05 19:50 20:10 23:10 Temp 97.6 97.6 Pulse 78 Resp 16 18 B/P (MAP) 100/48 (65) Pulse Ox 97 95 O2 Delivery Room Air Room Air Room Air Room Air 06/29/19 06/29/19 06/30/19 06/30/19 23:26 23:48 03:24 07:00 Temp 97.7 97.7 97.8 97.7 97.7 97.8 Pulse 63 88 88 Resp 20 18 20 18 B/P (MAP) 111/49 (69) 130/74 (92) 133/58 (83) Pulse Ox 92 95 93 O2 Delivery Room Air Room Air Room Air Room Air 06/30/19 06/30/19 06/30/19 08:08 08:08 08:09 Pulse 88 88 88 B/P (MAP) 133/59 133/59 133/59 Intake and Output 06/29/19 06/29/19 06/30/19 14:59 22:59 06:59 Intake Total 700 ml 520 ml 200 ml Balance 700 ml 520 ml 200 ml PORSCHE MEDRANO MD Jun 30, 2019 08:41
--- NOTE | 2019-06-30 11:20 | PDOC3 ---
Discharge Summary Visit Information Date of Admission: Jun 29, 2019 Date of Discharge: Jun 30, 2019 Admitting Diagnosis Comment: Acute diarrhea, viral resolved Dehydration, clinically sec to GI losses LEukocytosis WBC 19 RESOLVED (7 on dc) NEg UTI, neg PNA - could be AGE Chronic anemia - hgb 8 Thrombocytopenia - hold lovenox SQ STage 4 colon ca - known to heme onc - on palliative chemo Obesity BMI 36\ Final Diagnosis Problems Medical Problems: (1) Dehydration Status: Acute (2) Leukocytosis Status: Acute Brief Hospital Course Allergies Allergies Coded Allergies Type Severity Reaction Last Updated Verified lisinopril Allergy Intermediate coughing 12/12/16 Yes ranolazine Allergy Intermediate HYPOTENSION 12/12/16 Yes Vital Signs Vital Signs Date Time Temp Pulse Resp B/P (MAP) Pulse Ox O2 Delivery O2 Flow Rate FiO2 06/30/19 08:09 88 133/59 06/30/19 08:00 Room Air 06/30/19 07:00 97.8 18 93 97.8 Lab Results Laboratory Tests Test 06/28/19 17:10 06/28/19 17:15 06/29/19 07:05 06/29/19 08:13 White Blood Count 19.3 x10^3/uL (4.0-11.0) Red Blood Count 2.89 x10^6/uL (4.30-5.70) Hemoglobin 8.9 g/dL (13.0-17.5) Hematocrit 26.8 % (39.0-53.0) Mean Corpuscular Volume 93 fL (79-100) Mean Corpuscular Hemoglobin 31 pg (25-35) Mean Corpuscular Hemoglobin Concent 33 g/dL (31-37) Red Cell Distribution Width 20.0 % (11.5-14.5) Platelet Count 37 x10^3/uL (140-400) Neutrophils (%) (Auto) 87 % (31-73) Lymphocytes (%) (Auto) 8 % (24-48) Monocytes (%) (Auto) 3 % (0-9) Eosinophils (%) (Auto) 2 % (0-3) Basophils (%) (Auto) 0 % (0-3) Neutrophils # (Auto) 16.8 x10^3/uL (1.8-7.7) Lymphocytes # (Auto) 1.6 x10^3/uL (1.0-4.8) Monocytes # (Auto) 0.6 x10^3/uL (0.0-1.1) Eosinophils # (Auto) 0.3 x10^3/uL (0.0-0.7) Basophils # (Auto) 0.1 x10^3/uL (0.0-0.2) Segmented Neutrophils % 80 % (35-66) Band Neutrophils % 9 % (0-9) Lymphocytes % 9 % (24-48) Monocytes % 1 % (0-10) Eosinophils % 1 % (0-5) Toxic Granulation Mod Platelet Estimate Decreased (ADEQUATE) Polychromasia Slight Anisocytosis Mod Prothrombin Time 14.9 SEC (11.7-14.0) Prothromb Time International Ratio 1.2 (0.8-1.1) Sodium Level 141 mmol/L (136-145) Potassium Level 3.9 mmol/L (3.5-5.1) Chloride Level 106 mmol/L (98-107) Carbon Dioxide Level 25 mmol/L (21-32) Anion Gap 10 (6-14) Blood Urea Nitrogen 10 mg/dL (8-26) Creatinine 1.0 mg/dL (0.7-1.3) Estimated GFR (Cockcroft-Gault) 74.8 BUN/Creatinine Ratio 10 (6-20) Glucose Level 200 mg/dL (70-99) Lactic Acid Level 1.5 mmol/L (0.4-2.0) Calcium Level 8.9 mg/dL (8.5-10.1) Total Bilirubin 0.7 mg/dL (0.2-1.0) Aspartate Amino Transf (AST/SGOT) 17 U/L (15-37) Alanine Aminotransferase (ALT/SGPT) 25 U/L (16-63) Alkaline Phosphatase 84 U/L (46-116) Troponin I Quantitative < 0.017 ng/mL (0.000-0.055) Total Protein 6.5 g/dL (6.4-8.2) Albumin 3.4 g/dL (3.4-5.0) Albumin/Globulin Ratio 1.1 (1.0-1.7) Lipase 84 U/L (73-393) Influenza Type A Antigen Negative (NEGATIVE) Influenza Type B Antigen Negative (NEGATIVE) Urine Collection Type Unknown Urine Color Yellow Urine Clarity Clear Urine pH 5.5 Urine Specific Lindsay >=1.030 Urine Protein Negative mg/dL (NEG-TRACE) Urine Glucose (UA) >=1000 mg/dL (NEG) Urine Ketones (Stick) 15 mg/dL (NEG) Urine Blood Negative (NEG) Urine Nitrite Negative (NEG) Urine Bilirubin Negative (NEG) Urine Urobilinogen Dipstick 1.0 mg/dL (0.2 mg/dL) Urine Leukocyte Esterase Negative (NEG) Urine RBC 0 /HPF (0-2) Urine WBC Occ /HPF (0-4) Urine Squamous Epithelial Cells Few /LPF Urine Bacteria 0 /HPF (0-FEW) Urine Mucus Mod /LPF Glucose (Fingerstick) 191 mg/dL (70-99) Test 06/29/19 11:23 06/29/19 16:25 06/29/19 21:13 06/30/19 04:58 Glucose (Fingerstick) 184 mg/dL (70-99) 79 mg/dL (70-99) 255 mg/dL (70-99) White Blood Count 7.7 x10^3/uL (4.0-11.0) Red Blood Count 2.48 x10^6/uL (4.30-5.70) Hemoglobin 7.8 g/dL (13.0-17.5) Hematocrit 23.2 % (39.0-53.0) Mean Corpuscular Volume 94 fL (79-100) Mean Corpuscular Hemoglobin 31 pg (25-35) Mean Corpuscular Hemoglobin Concent 34 g/dL (31-37) Red Cell Distribution Width 20.1 % (11.5-14.5) Platelet Count 34 x10^3/uL (140-400) Neutrophils (%) (Auto) 71 % (31-73) Lymphocytes (%) (Auto) 18 % (24-48) Monocytes (%) (Auto) 8 % (0-9) Eosinophils (%) (Auto) 4 % (0-3) Basophils (%) (Auto) 1 % (0-3) Neutrophils # (Auto) 5.4 x10^3/uL (1.8-7.7) Lymphocytes # (Auto) 1.3 x10^3/uL (1.0-4.8) Monocytes # (Auto) 0.6 x10^3/uL (0.0-1.1) Eosinophils # (Auto) 0.3 x10^3/uL (0.0-0.7) Basophils # (Auto) 0.0 x10^3/uL (0.0-0.2) Test 06/30/19 07:17 Glucose (Fingerstick) 216 mg/dL (70-99) Laboratory Tests Test 06/29/19 11:23 06/29/19 16:25 06/29/19 21:13 06/30/19 04:58 Glucose (Fingerstick) 184 mg/dL (70-99) 79 mg/dL (70-99) 255 mg/dL (70-99) White Blood Count 7.7 x10^3/uL (4.0-11.0) Red Blood Count 2.48 x10^6/uL (4.30-5.70) Hemoglobin 7.8 g/dL (13.0-17.5) Hematocrit 23.2 % (39.0-53.0) Mean Corpuscular Volume 94 fL (79-100) Mean Corpuscular Hemoglobin 31 pg (25-35) Mean Corpuscular Hemoglobin Concent 34 g/dL (31-37) Red Cell Distribution Width 20.1 % (11.5-14.5) Platelet Count 34 x10^3/uL (140-400) Neutrophils (%) (Auto) 71 % (31-73) Lymphocytes (%) (Auto) 18 % (24-48) Monocytes (%) (Auto) 8 % (0-9) Eosinophils (%) (Auto) 4 % (0-3) Basophils (%) (Auto) 1 % (0-3) Neutrophils # (Auto) 5.4 x10^3/uL (1.8-7.7) Lymphocytes # (Auto) 1.3 x10^3/uL (1.0-4.8) Monocytes # (Auto) 0.6 x10^3/uL (0.0-1.1) Eosinophils # (Auto) 0.3 x10^3/uL (0.0-0.7) Basophils # (Auto) 0.0 x10^3/uL (0.0-0.2) Test 06/30/19 07:17 Glucose (Fingerstick) 216 mg/dL (70-99) Brief Hospital Course Mr. Lane is a 64 old white male who has stage 4 colon ca known to dr belle and is on palliative chemo, Admitted for AGE<, viral, with some mild signs of dehydration on arrival. BEtter after overnight IVF and supportive meds, NO abx needed, HOme today with no PT needs. Dc < 30 Pt seen and examined, dw at bedside COnsults; DR Belle Proc: none Discharge Information Condition at Discharge: Improved, Stable Follow Up: Weeks (ff up heme onc for your palliative chemo) Disposition/Orders: D/C to Home Scheduled Aspirin (Children's Aspirin) 81 Mg Tab.chew, 81 MG PO DAILY for heart health, (Reported) Entered as Reported by: ALEXIS QUINTERO on 02/17/19 1111 Calcium Carbonate/Vitamin D3 (Oyster Shell Calcium + D Tab) 1 Each Tablet, 1 EACH PO BID, (Reported) Entered as Reported by: ALEXANDER KRUEGER on 02/24/14 1700 Carvedilol Phosphate (Coreg Cr) 20 Mg Cpmp.24hr, 20 MG PO DAILY, (Reported) Entered as Reported by: ALEXANDER KRUEGER on 02/24/14 1701 Dulaglutide (Trulicity) 0.75 Mg/0.5 Ml Pen.injctr, 0.75 MG SQ WEEKLY for daibetes, (Reported) Entered as Reported by: ALEXIS QUINTERO on 02/17/19 0936 Duloxetine Hcl (Duloxetine Hcl) 60 Mg Capsule.dr, 60 MG PO DAILY, (Reported) Entered as Reported by: BURTON VARNER on 09/04/16900 Last Action: Converted on 06/29/1958 by RONEN HOSKINS RN Empagliflozin (Jardiance) 25 Mg Tablet, 25 MG PO DAILY for diabetes, (Reported) Entered as Reported by: BURTON VARNER on 09/04/16900 Furosemide (Furosemide) 20 Mg Tablet, 20 MG PO DAILY, (Reported) Entered as Reported by: BURTON VARNER on 09/04/16900 Insulin Aspart (Novolog) 100 Unit/1 Ml Vial, 22 UNIT SQ TIDAC for short acting, (Reported) Entered as Reported by: ALEXIS QUINTERO on 02/17/19 1111 Last Action: Converted on 06/29/1958 by RONEN HOSKINS RN Insulin Glargine,Hum.rec.anlog (Lantus) 100 Unit/1 Ml Vial, 70 UNIT SQ HS for DIABETES, (Reported) Entered as Reported by: RONEN HOSKINS RN on 06/29/1954 Last Action: Continued on 06/29/1958 by RONEN HOSKINS RN Isosorbide Mononitrate (Isosorbide Mononitrate Er) 30 Mg Tab.er.24h, 30 MG PO DAILY for Angina for 30 Days, #30 Ref 5 Prescribed by: MAKAYLA PINTO MD on 02/17/19 1234 Last Action: Continued on 06/29/1958 by RONEN HOSKINS RN Magnesium Chloride (Mag64) 64 Mg Tablet.er, 64 MG PO BID for supplement, (Reported) Entered as Reported by: ALEXIS QUINTERO on 02/17/19 1111 Metformin Hcl (Metformin Hcl) 1,000 Mg Tablet, 1,000 MG PO BIDWMEALS for diabetesd, (Reported) Entered as Reported by: ALEXIS QUINTERO on 02/17/19935 [place]-3S/Dha/Epa/Fish Oil (Fish Oil 1,200 mg Softgel) 1 Each Capsule.dr, 1,200 MG PO DAILY for supplement, (Reported) Entered as Reported by: ALEXIS QUINTERO on 02/17/19 1111 Pantoprazole Sodium (Protonix) 20 Mg Tablet.dr, 40 MG PO DAILY for GERD, (Reported) Entered as Reported by: ALEXIS QUINTERO on 02/17/19935 Last Action: Converted on 06/29/1958 by RONEN HOSKINS RN Pregabalin (Lyrica) 200 Mg Capsule, 200 MG PO TID for nerve pain for 30 Days, #90 Ref 0 (Reported) Entered as Reported by: ALEXIS QUINTERO on 02/17/19935 Last Action: Converted on 06/29/1958 by RONEN HOSKINS RN Propranolol Hcl (Propranolol Hcl) 20 Mg Tablet, 1 TAB PO BID for htn, #60 Ref 2 (Reported) Entered as Reported by: RONEN HOSKINS RN on 06/29/1954 Last Taken: UNKNOWN on Unknown Date & Time Last Action: Converted on 06/29/1958 by RONEN HOSKINS RN Psyllium Husk/Aspartame (Metamucil Fiber Singles Packet) 3.4 Gm Powd.pack, 1 PKT PO DAILY for Constipation/diarrhea for 30 Days, #30 Ref 11 Prescribed by: MAKAYLA PINTO MD on 02/17/19 1234 Ranitidine Hcl (Ranitidine Hcl) 150 Mg Tablet, 150 MG PO DAILY, (Reported) Entered as Reported by: BURTON VARNER on 09/04/16 0901 Rosuvastatin Calcium (Crestor) 10 Mg Tablet, 10 MG PO DAILY for cholesterol, #30 Ref 0 (Reported) Entered as Reported by: ALEXANDER KRUEGER on 02/24/14 1701 Last Action: Converted on 06/29/1958 by RONEN HOSKINS RN Tamsulosin Hcl (Flomax) 0.4 Mg Cap.er.24h, 1 CAP PO DAILY for retention, #30 Ref 11 (Reported) Entered as Reported by: RONEN HOSKINS RN on 06/29/1954 Last Taken: UNKNOWN on Unknown Date & Time Last Action: Continued on 06/10 by RONEN HOSKINS RN Telmisartan (Telmisartan) 20 Mg Tablet, 20 MG PO DAILY for HYPERTENSION, (Reported) Entered as Reported by: RONEN HOSKINS RN on 06/29/1954 Last Action: Converted on 06/29/1958 by RONEN HOSKINS RN Zolpidem Tartrate (Zolpidem Tartrate) 5 Mg Tablet, 1 TAB PO QHS, #30 (Reported) Entered as Reported by: BURTON VARNER on 09/04/16 09 Scheduled PRN Alprazolam (Alprazolam) 0.5 Mg Tablet, 1 TAB PO PRN QID PRN for ANXIETY / AGITATION, #30 (Reported) Entered as Reported by: RONEN HOSKINS RN on 06/29/1954 Last Action: Continued on 06/29/1958 by RONEN HOSKINS RN Cyclobenzaprine Hcl (Cyclobenzaprine Hcl) 5 Mg Tablet, 1 TAB PO PRN TID PRN for muscle spasms, #30 (Reported) Entered as Reported by: RONEN HOSKINS RN on 06/29/1954 Last Taken: UNKNOWN on Unknown Date & Time Last Action: Converted on 06/29/1958 by RONEN HOSKINS RN Diphenoxylate Hcl/Atropine (Lomotil Tablet) 1 Each Tablet, 2 TAB PO PRN Q6HRS PRN for DIARRHEA, #30 (Reported) Entered as Reported by: RONEN HOSKINS RN on 06/29/1999 Last Taken: UNKNOWN on Unknown Date & Time Last Action: Continued on 06/29/19101 by RONEN HOSKINS RN Hydrocodone Bit/Acetaminophen (Hydrocodone-Apap 5-325 ) 1 Tab Tablet, 1 TAB PO PRN Q4HRS PRN for MODERATE PAIN for 30 Days, #120 Prescribed by: MAKAYLA PINTO MD on 02/17/19 1234 Hydrocodone Bit/Acetaminophen (Hydrocodone-Apap 7.5-325 ) 1 Tab Tablet, 1 TAB PO PRN QID PRN for PAIN, Ref 0 (Reported) Entered as Reported by: RONEN HOSKINS RN on 06/29/1954 Last Taken: UNKNOWN on Unknown Date & Time Last Action: Continued on 06/29/1958 by RONEN HOSKINS RN Ondansetron Hcl (Ondansetron Hcl) 8 Mg Tablet, 8 MG PO QID PRN for NAUSEA/VOMITING, (Reported) Entered as Reported by: RONEN HOSKINS RN on 06/29/1954 Last Action: Converted on 06/29/1958 by RONEN HOSKINS RN Discontinued Medications Alprazolam (Alprazolam) 0.25 Mg Tablet, 1 TAB PO PRN QID for anxiety, #60 (R eported) Discontinued Reason: Prescription changed Entered as Reported by: BURTON VARNER on 09/04/16 0901 Apixaban (Eliquis) 5 Mg Tablet, 5 MG PO BID for blood thinner, (Reported) Entered as Reported by: ALEXIS QUINTERO on 02/17/19 09 Ondansetron Hcl (Ondansetron Hcl) 4 Mg Tablet, 4 MG PO BID PRN for NAUSEA/VOMITING, (Reported) Discontinued Reason: Prescription changed Entered as Reported by: ALEXIS QUINTERO on 02/17/19 09 JEAN-PAUL CHRISTIANSON MD Jun 30, 2019 11:20
--- NOTE | 2019-06-30 11:20 | NUR ---
Discharge instructions and belongings reviewed with patient, verbalized understanding. Patient was escorted out via ambulation by this RN accompanied by his .
== END 2019-06-30 11:21 | disposition home or self-care (01) | DRG 872 ==
LOC: ER 16:14 → 4 NORTH 18:08
PROVIDERS: ADMIT Internal Medicine; ATTEND Internal Medicine
DX: A41.9 Sepsis, unspecified organism (principal); C18.9 Malignant neoplasm of colon, unspecified; R18.8 Other ascites; C78.00 Secondary malignant neoplasm of unspecified lung; C78.7 Secondary malignant neoplasm of liver and intrahepatic bile duct; K76.6 Portal hypertension; K92.2 Gastrointestinal hemorrhage, unspecified; A08.4 Viral intestinal infection, unspecified; E11.43 Type 2 diabetes mellitus with diabetic autonomic (poly)neuropathy; E78.1 Pure hyperglyceridemia; D69.59 Other secondary thrombocytopenia; K31.84 Gastroparesis; I25.10 Atherosclerotic heart disease of native coronary artery without angina pectoris; J44.9 Chronic obstructive pulmonary disease, unspecified; I10 Essential (primary) hypertension; F32.9 Major depressive disorder, single episode, unspecified; E86.0 Dehydration; R19.7 Diarrhea, unspecified; D64.9 Anemia, unspecified; E66.9 Obesity, unspecified; Z68.36 Body mass index [BMI] 36.0-36.9, adult; Z88.8 Allergy status to other drugs, medicaments and biological substances; Z87.11 Personal history of peptic ulcer disease; Z87.19 Personal history of other diseases of the digestive system; Z90.49 Acquired absence of other specified parts of digestive tract; Z95.5 Presence of coronary angioplasty implant and graft; Z92.21 Personal history of antineoplastic chemotherapy; Z80.6 Family history of leukemia; Z80.8 Family history of malignant neoplasm of other organs or systems; Z82.49 Family history of ischemic heart disease and other diseases of the circulatory system
CPT/HCPCS: 36415; 70450; 71045; 74176; 80053; 81001; 82962; 83605; 83690; 84484; 85007; 85025; 85610; 87040; 87804; 93005; 96361; 96374; J1650; J1815; J2270; J2405; J2543; J3010; J7030; 99285-25; G0378

== ENCOUNTER 2020-01-13 09:06 | Day surgery (SDC) | payer MEDICARE, OTHER ==
[2020-01-08 14:57] LABS: BASO # 0.1 x10^3/uL (0.0-0.2); BASO % 1 % (0-3); EOS # 0.3 x10^3/uL (0.0-0.7); EOS % 2 % (0-3); HEMOGLOBIN 11.4 g/dL (13.0-17.5); LYMPH # 2.9 x10^3/uL (1.0-4.8); LYMPH % 24 % (24-48); MEAN CORPUSCULAR HEMOGLOBIN 27 pg (25-35); MEAN CORPUSCULAR HGB CONC 32 g/dL (31-37); MEAN CORPUSCULAR VOLUME 86 fL (79-100); MONO # 1.5 x10^3/uL (0.0-1.1); MONO % 12 % (0-9); NEUT # 7.5 x10^3/uL (1.8-7.7); NEUT % 61 % (31-73); PLATELET COUNT 60 x10^3/uL (140-400); RED BLOOD COUNT 4.16 x10^6/uL (4.30-5.70); RED CELL DISTRIBUTION WIDTH 28.9 % (11.5-14.5); WHITE BLOOD COUNT 12.3 x10^3/uL (4.0-11.0)
[2020-01-08 15:24] LABS: PLT ESTIMATE DECREASED (ADEQUATE)
[2020-01-08 15:25] LABS: ANISOCYTOSIS MARKED; POLYCHROMASIA SLIGHT; TOXIC GRANULATION SLIGHT
[~2020-01-13 09:06] MED LIST changes: +ALPR0.5T6 PO; +BACITRACIN 50,000 UNIT in IV NORMAL SALINE 500ML BAG 500 ML IRR ONE; +CYAN50004 PO; +CYCL5TAB PO; +FERR325T14 PO; +HYDR-2765 PO; +HYDROmorphone 2 MG/ML VIAL IV PRN; +IV RINGERS,LACTATED 1000ML 1,000 ML IV SCH; +LIDOCAINE 1% PF 2 ML VIAL. ID PRN; +MORPHINE SULFATE 2 MG/ML VIAL. IV PRN; +ONDA-84 PO; -ONDA4TAB11 PO; +ONDA8TAB17 PO; +ONDANSETRON PF 4 MG/2 ML VIAL. IV PRN; +PROCHLORPERAZINE 10 MG/2 ML VIAL. IV PRN; +PROP20TA PO; +TAMS0.4C97 PO; +TELM20TA7 PO; +VITA-8 PO; -VITA400C36 PO; +fentaNYL PF VIAL 100 MCG/2 ML VIAL IV PRN
[2020-01-13] MEDS ORDERED: CHLORHEXIDINE 0.12% 15 ML MOUTHWASH. ONE (10:58)
[2020-01-13] MEDS ORDERED: fentaNYL PF VIAL 100 MCG/2 ML VIAL ONE (11:08)
[2020-01-13] MEDS ORDERED: ROCURONIUM 50 MG/5 ML VIAL. ONE (11:08)
[2020-01-13] MEDS ORDERED: KETOROLAC 30 MG/ML VIAL. ONE (11:09)
[2020-01-13] MEDS ORDERED: DEXAMETHASONE SOD PHOS 4 MG/ML VIAL ONE (11:09)
[2020-01-13] MEDS ORDERED: diphenhydrAMINE 50 MG/ML VIAL ONE (11:09)
[2020-01-13] MEDS ORDERED: MIDAZOLAM HCL/PF 2 MG/2 ML VIAL. ONE (11:09)
[2020-01-13] MEDS ORDERED: LIDOCAINE 2% PF 5 ML VIAL. ONE (11:09)
[2020-01-13] MEDS ORDERED: ONDANSETRON PF 4 MG/2 ML VIAL. ONE (11:09)
[2020-01-13] MEDS ORDERED: NEOSTIGMINE METHYLSULFATE 5 MG/5 ML SYRINGE. ONE (11:09)
[2020-01-13] MEDS ORDERED: GLYCOPYRROLATE 1 MG/5 ML VIAL. ONE (11:14)
[2020-01-13] MEDS ORDERED: BUPIVACAINE-EPI 0.5%-1:200000 MPF 30 ML VIAL. ONE (11:36)
[2020-01-13] MEDS ORDERED: GELATIN SPONGE SIZE 100. ONE (11:36)
[2020-01-13] MEDS ORDERED: INSULIN LISPRO 100 UNIT/ML 3ML VIAL for OP,RR ONLY. SQ PRN (12:00)
[2020-01-13] MEDS ORDERED: SUCCINYLCHOLINE 200 MG/10 ML VIAL. ONE (12:08)
[2020-01-13] MEDS ORDERED: ceFAZolin SODIUM IV Push 1 GM VIAL. IVP ONE ×2 (12:18)
[2020-01-13] MEDS ORDERED: NEOMY/BACITR/POLYMYXIN OINT PACKET. TP ONE (12:22)
[2020-01-13] MEDS ORDERED: PHENYLEPHRINE in 0.9% NACL PF 1 MG/10 ML SYRINGE. IV ONE (12:57)
--- NOTE | 2020-01-13 13:22 | PDOC4 ---
OPERATIVE NOTE Date: Date: January 13, 2020 Pre-Op Diagnosis: Metastatic colon cancer Thrombocytopenia odontogenic infection caries, non restorable teeth # 4, 21,29,31 Post-Op Diagnosis: same Procedure Performed: sx extraction # 4, 21,29,31 Surgeon: suki Anesthesia Type: mcnitt Blood Loss: 20 Specimans Obtained: teeth disposed of in OR Findings: see dictation Complications: none Operative Note: see dictation sx extraction # 4, 21,29,31 RONEN KHAN DMD January 13, 2020 13:22
[2020-01-13 14:20] VITALS: BP 142/73
--- NOTE | 2020-01-13 14:37 | NUR ---
PLATELET TRANSFUSION DONE PER OR STAFF DURING OR PROCEDURE. SEE ANESTHESIA RECORDS FOR VS DURING PROCEDURE
--- NOTE | 2020-01-13 15:00 | OP ---
DATE OF SURGERY: 01/13/2020 OPERATING SERVICE: night auditor. ATTENDING PHYSICIAN: Jacky Khan DMD PREOPERATIVE DIAGNOSES: Metastatic colon cancer to the liver, thrombocytopenia, odontogenic infection of teeth numbers 4, 21, 29, 31 with symptoms. POSTOPERATIVE DIAGNOSES: Metastatic colon cancer to the liver, thrombocytopenia, odontogenic infection of teeth numbers 4, 21, 29, 31 with symptoms. PROCEDURES PERFORMED: Surgical removal and extraction of teeth numbers 4, 21, 29, 31 BRIEF HISTORY: The patient bony 64-year-old male with past medical history significant for colon cancer, multiple surgical interventions with active chemotherapy, has had recent pain and the aforementioned teeth numbers 4, 21, 29 and 31. He is referred for extraction of these nonrestorable teeth. The patient is an active and he has been significantly thrombocytopenic and so they had to hold his chemo for several sessions intermittently. The patient was referred to our clinic and we reviewed the risks, alternatives, and benefits. Considering these issues, we had elected to escalate the setting of care to the operating room where we could provide anesthesia and platelet transfusion intraoperatively to address his thrombocytopenia. DRAINS PLACED: None. SPECIMEN SENT: None. The teeth were disposed off in the OR. COMPLICATIONS: None noted at the time of surgery. ESTIMATED BLOOD LOSS: Approximately 20 mL. OPERATIVE DESCRIPTION: After the history and physical was updated in the preoperative holding area, the patient was transported by the operating service to the operating suite, placed in the supine position. General anesthesia was induced. The patient was then intubated with oral intubation without complication which was secured to the upper left side of the face. The timeout was performed. All perioperative staff was in agreeance. The patient was then prepped and draped in normal sterile fashion. Approximately 20 mL of 0.5% Marcaine, 1:200,000 epinephrine was administered into the proposed surgical areas. An additional 10 mL of local anesthesia was administered into the surgical areas at the culmination of the procedure, approximately an hour later. A moistened throat pack was placed and surgery began on the right side with a 15 blade and this was used to make incisions around the buccal side of the teeth on the right side of the patient. Teeth numbers 4, 29 and 31. Our these teeth were then luxated, elevated and extracted with forceps and elevators and the extraction sites were curetted with curettage and sites were then lavaged with copious normal sterile saline. Gelfoam was placed in each site. These sites were oversewn with 3-0 chromic gut sutures in a running locked fashion on the lower side and multiple [id number] on the upper right. The sites were found to be hemostatic with a significant extra ooze. The platelets were then called for to be administered to the patient at this time and once that was done, the oral cavity was lavaged and suctioned and a bite block was placed on the opposite side and the oral endotracheal tube was then manipulated so that it would not be in the way of the dressing, surgically the lower left side of the face. At this point in time, a #15 blade was brought to the field and a buccal full thickness mucoperiosteal flap was reflected buccally. Tooth #21 was then luxated, elevated and extracted with hand instruments and rongeurs without complication. The site was then curettaged and lavaged with copious normal sterile saline again. Gelfoam was placed into the extraction site and oversewn with 2 [id number] sutures. These sites were then found to be hemostatic. The oral cavity was then lavaged and suctioned. The moistened throat pack was then removed. An OG was passed and the stomach was decompressed. The patient was then returned to the care of Anesthesia, where he was awakened and extubated without complication and transported to the PACU in stable condition. JACKY KHAN DMD DR: VANIA/malu JOB#: [id number] / [id number]
== END 2020-01-13 15:08 | disposition home or self-care (01) ==
LOC: SURG 09:06
PROVIDERS: ATTEND Dentist Oral and Maxillofacial Surgery
DX: K05.20 Aggressive periodontitis, unspecified (principal); Z11.59 Encounter for screening for other viral diseases; D69.6 Thrombocytopenia, unspecified; Z85.038 Personal history of other malignant neoplasm of large intestine; Z79.899 Other long term (current) drug therapy; Z88.8 Allergy status to other drugs, medicaments and biological substances; Z79.4 Long term (current) use of insulin; Z79.84 Long term (current) use of oral hypoglycemic drugs
CPT/HCPCS: 36415; 41899; 85025; 85049; 86850; 86900; 86901; 87635; 87641; A7015; J0330; J0690; J1100; J1815; J1885; J2250; J2370; J2405; J2710; J3010; J3490; J7040; J7120; P9035; J1200